=== PATIENT | male | born 1970 ===

== ENCOUNTER 2018-11-08 10:16 | Inpatient (IN) | payer OTHER ==
[2018-11-08 10:17] VITALS: BMI 25.7
[2018-11-08] MEDS ORDERED: Sodium Chloride 0.9% 1,000 ML IV ONE ×2 (10:52→14:56)
[2018-11-08] MEDS ORDERED: Sodium Chloride 0.9% 1,000 ML ONE ×2 (11:02→15:03)
[2018-11-08 11:09] LABS: BASO % 0.2 % (0.0-2.0); HEMOGLOBIN 14.1 g/dL (12.0-18.0); LYMPH # 0.9 K/uL (1.0-4.3); LYMPH % 10.9 % (20.0-40.0); MEAN CELL VOLUME 80.9 fL (80.0-94.0); MEAN CORPUSCULAR HEMOGLOBIN 26.7 pg (27.0-31.0); MONO # 0.4 K/uL (0.0-0.8); MONO % 5.2 % (0.0-10.0); NEUT # 7.1 K/uL (1.8-7.0); NEUT % 83.7 % (50.0-75.0); RBC 5.27 Mil/uL (4.40-5.90); RED CELL DISTRIBUTION WIDTH 13.6 % (11.5-14.5); WHITE BLOOD COUNT 8.5 K/uL (4.8-10.8)
[2018-11-08 11:28] LABS: ALB/GLOB RATIO 1.5 (1.0-2.1); ALBUMIN 4.8 g/dL (3.5-5.0); ALT/SGPT 475 U/L (21-72); AMYLASE 65 U/L (30-110); AST/SGOT 663 U/L (17-59); BLOOD UREA NITROGEN 16 mg/dL (9-20); CALCIUM 9.5 mg/dl (8.6-10.4); GFR NON-AFRICAN AMERICAN > 60; LIPASE 71 U/L (23-300)
[2018-11-08 11:40] LABS: URINE AMORPHOUS SEDIMENT FEW /ul (<OCC); URINE BACTERIA OCC (<OCC); URINE BILIRUBIN NEGATIVE (NEGATIVE); URINE BLOOD NEGATIVE (NEGATIVE); URINE CLARITY Hazy (Clear); URINE GLUCOSE (UA) NORMAL (Normal); URINE LEUKOCYTE ESTERASE NEG Leu/uL (Negative); URINE PROTEIN 1+ mg/dL (NEGATIVE)
[2018-11-08 11:43] LABS: URINE COLOR YELLOW (YELLOW)
--- NOTE | 2018-11-08 11:56 | C.PDOC ---
Time Seen by Provider: 11/08/18 10:44 Chief Complaint (Nursing): Abdominal Pain Past Medical History Vital Signs: Last Vital Signs Temp 98.7 F 11/08/18 10:23 Pulse 75 11/08/18 10:23 Resp 18 11/08/18 10:23 BP 139/75 11/08/18 10:23 Pulse Ox 96 11/08/18 10:23 - Medical History PMH: Kidney Stones, Chronic Kidney Disease Family History: States: Unknown Family Hx - Social History Hx Alcohol Use: No Hx Substance Use: No ED Course And Treatment - Laboratory Results Result Diagrams: 11/08/18 11:04 11/08/18 11:04 ECG: Interpreted By Me, Viewed By Me ECG Rhythm: Sinus Rhythm ECG Interpretation: No Acute Changes Rate From EC O2 Sat by Pulse Oximetry: 96 Disposition - Disposition Forms: [employer] (Thai)
--- NOTE | 2018-11-08 12:35 | C.PDOC ---
History Of Present Illness 48 year old male, with no significant past medical history, presents to ED for evaluation of intermittent epigastric abdominal pain for the past 2 weeks but persistent over the last 2 days. Patient states he is unable to eat due to the pain. He reports associated nausea, and vomiting since last night. He reports one episode of non-bloody loose stool today. Denies urinary symptoms, back pain, or fever. Time Seen by Provider: 11/08/18 10:44 Chief Complaint (Nursing): Abdominal Pain History Per: Patient History/Exam Limitations: no limitations Onset/Duration Of Symptoms: Days Current Symptoms Are (Timing): Worse Location Of Pain/Discomfort: Epigastric Radiation Of Pain To:: None Quality Of Discomfort: "Pain" Associated Symptoms: Nausea, Vomiting Exacerbating Factors: None Alleviating Factors: None Recent travel outside of the [place]: No Additional History Per: Patient Past Medical History Reviewed: Historical Data, Nursing Documentation, Vital Signs Vital Signs: Last Vital Signs Temp 98.7 F 11/08/18 10:23 Pulse 75 11/08/18 10:23 Resp 18 11/08/18 10:23 BP 139/75 11/08/18 10:23 Pulse Ox 96 11/08/18 10:23 - Medical History PMH: Kidney Stones, Chronic Kidney Disease Family History: States: Unknown Family Hx - Social History Hx Alcohol Use: No Hx Substance Use: No Review Of Systems Except As Marked, All Systems Reviewed And Found Negative. Constitutional: Negative for: Fever, Chills Gastrointestinal: Positive for: Nausea, Vomiting, Abdominal Pain Genitourinary: Negative for: Dysuria, Frequency, Hematuria Musculoskeletal: Negative for: Back Pain Physical Exam - Physical Exam Appears: Non-toxic, Other (uncomfortable) Skin: Normal Color, Warm, Dry Head: Atraumatic, Normacephalic Eye(s): bilateral: Normal Inspection Oral Mucosa: Moist Neck: Normal ROM, Supple Cardiovascular: Rhythm Regular, No Murmur Respiratory: Normal Breath Sounds, No Rales, No Rhonchi, No Wheezing Gastrointestinal/Abdominal: Soft, Tenderness (epigastric), No Guarding, No Rebound, No Other ((-)McBurney's (-)Camargo's) Back: No CVA Tenderness Extremity: Normal ROM Neurological/Psych: Oriented x3, Normal Speech ED Course And Treatment - Laboratory Results Result Diagrams: 11/08/18 11:04 11/08/18 11:04 Lab Interpretation: Abnormal ECG: Interpreted By Me, Viewed By Me ECG Rhythm: Sinus Rhythm ECG Interpretation: No Acute Changes Rate From EC (bpm) O2 Sat by Pulse Oximetry: 96 (RA) Pulse Ox Interpretation: Normal - CT Scan/US Abdomen Other Rad Studies (CT/US): Read By Radiologist, Radiology Report Reviewed CT/US Interpretation: Accession No. : [id number]. Patient Name / ID : ASHLEY LOPEZ YON / [id number]. Exam Date : 11/08/2018 12:36:30 ( Approved ). Study Comment : Sex / Age : M / 48Y. Creator : Jeannette Pimentel MD. Dictator : Jeannette Pimentel MD. Lipcoat Sprayer : Sheet Manufacturing Supervisor : Jeannette Pimentel MD. Approver2 : Report Date : 11/08/2018 13:17:18. My Comment : . Date of service: 11/08/2018. HISTORY: upper abd pain, abn LFT. COMPARISON: None. TECHNIQUE: Sonographic evaluation of the abdomen. FINDINGS: LIVER: Measures 14.3 cm. There is diffuse increased echogenicity of the liver parenchyma. No mass. No intrahepatic bile duct dilatation. GALLBLADDER: The gallbladder is distended, there are multiple gallstones and mild gallbladder wall thickening with small pericholecystic fluid. No positive sonographic Camargo's sign. COMMON BILE DUCT: Measures 5.0 mm. No stones. No dilatation. PANCREAS: Unremarkable as visualized. No mass. No ductal dilatation. RIGHT KIDNEY: Measures 11.1cm. Normal echogenicity. No calculus, mass, or hydronephrosis. LEFT KIDNEY: Measures 12.3cm. Normal echogenicity. There is a 11 mm stone in the interpolar region and 9 mm stone in the upper pole. SPLEEN: Normal in size and contour. No mass. AORTA: No aneurysmal dilatation. IVC: Unremarkable. OTHER FINDINGS: None. IMPRESSION: Distended gallbladder, cholelithiasis and mild gallbladder wall thickening/pericholecystic fluid. Findings could represent acute calculus cholecystitis in the appropriate clinical setting. Clinical follow-up is advised. Nonobstructing stones in the left kidney. Hepatic steatosis. Medical Decision Making Medical Decision Making: Impression:48 year old male with epigastric abdominal pain associated with nausea, and vomiting. Plan: * Blood work * Urinalysis * ECG * Abdomen ultrasound * Pepcid * Toradol * Zofran * IV fluids Labs reviewed and abnormal elevated LFT and bilirubin. US shows Distended gallbladder, cholelithiasis and mild gallbladder wall thickening/pericholecystic fluid. Findings could represent acute calculus cholecystitis in the appropriate clinical setting. Nonobstructing stones in the left kidney. Hepatic steatosis. [address] surgery for consult. 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 Recommend MRCP and plan is for surgery SaturdayNovember 10. Contact hospitalist DR Morales for admission and she accepted Disposition - Disposition Disposition: HOSPITALIZED Disposition Time: 14:50 Condition: STABLE - POA Present On Arrival: None - Clinical Impression Clinical Impression: Acute calculous cholecystitis, Hepatitis - PA / ENGINEERING AND SCIENTIFIC PROGRAMMER / Resident Statement MD/DO has reviewed & agrees with the documentation as recorded. - Scribe Statement The provider has reviewed the documentation as recorded by the Berenice Aparicio All medical record entries made by the Mohsenibsade were at my direction and personally dictated by me. I have reviewed the chart and agree that the record accurately reflects my personal performance of the history, physical exam, medical decision making, and the department course for this patient. I have also personally directed, reviewed, and agree with the discharge instructions and disposition. Decision To Admit - Pt Status Changed To: Hospital Disposition Of: Inpatient - Admit Certification Admit to Inpatient:: After my assessment, the patient will require hospitalization for at least two midnights. This is because of the severity of symptoms shown, intensity of services needed, and/or the medical risk in this patient being treated as an outpatient. - InPatient: Physician Admission Certification:: Patient with acute pain and findings show cholelithiasis with correlating acute cholecystitis and surgery was consulted. Plan is for MRCP with GI and surgery - . Bed Request Type: Regular Admitting Physician: Elliot Morales Patient Diagnosis: Acute calculous cholecystitis, Hepatitis
--- NOTE | 2018-11-08 13:21 | US ---
Date of service: 11/08/2018 HISTORY: upper abd pain, abn LFT COMPARISON: None. TECHNIQUE: Sonographic evaluation of the abdomen. FINDINGS: LIVER: Measures 14.3 cm. There is diffuse increased echogenicity of the liver parenchyma. No mass. No intrahepatic bile duct dilatation. GALLBLADDER: The gallbladder is distended, there are multiple gallstones and mild gallbladder wall thickening with small pericholecystic fluid. No positive sonographic Camargo's sign. COMMON BILE DUCT: Measures 5.0 mm. No stones. No dilatation. PANCREAS: Unremarkable as visualized. No mass. No ductal dilatation. RIGHT KIDNEY: Measures 11.1cm. Normal echogenicity. No calculus, mass, or hydronephrosis. LEFT KIDNEY: Measures 12.3cm. Normal echogenicity. There is a 11 mm stone in the interpolar region and 9 mm stone in the upper pole. SPLEEN: Normal in size and contour. No mass. AORTA: No aneurysmal dilatation. IVC: Unremarkable. OTHER FINDINGS: None. IMPRESSION: Distended gallbladder, cholelithiasis and mild gallbladder wall thickening/pericholecystic fluid. Findings could represent acute calculus cholecystitis in the appropriate clinical setting. Clinical follow-up is advised. Nonobstructing stones in the left kidney. Hepatic steatosis.
[2018-11-08] MEDS ORDERED: Morphine 4 MG/ML VIAL ONE (15:03)
--- NOTE | 2018-11-08 15:17 | CP.PCM.CON ---
<Prabhjot Yu - Last Filed: 11/08/18 15:14> History of Present Illness - History of Present Illness History of Present Illness: General Sssry Consult Note for Dr. Ro This 48M with no PMH presents due to 2 weeks of epigastric abdominal pain following meals that were self limiting however yesterday after eating the pain started and did not go away. He reports nausea and vomiting which appeared as food contents. He reports diarrhea for the last 2 weeks as well which was non bloody and non bilious and associated with the pain. Before these two weeks this has never happened before. Nothing makes it better and nothing makes it worse. Denies fevers chils chest pain. PMH: Denies PSH: Denies ALL: Denies Social: Denies vices Review of Systems - Constitutional Constitutional: absent: Chills, Fever - EENT Eyes: absent: Blind Spots, Blurred Vision Ears: absent: Tinnitus, Dizziness - Cardiovascular Cardiovascular: absent: Chest Pain, Dyspnea - Respiratory Respiratory: absent: Dyspnea, Dyspnea on Exertion - Gastrointestinal Gastrointestinal: Abdominal Pain, Bloating, Diarrhea, Nausea, Vomiting - Genitourinary Genitourinary: absent: Dysuria, Hematuria - Integumentary Integumentary: absent: Dry Skin, Lesions Past Patient History - Infectious Disease Hx of Infectious Diseases: None - Past Social History Smoking Status: Unknown If Ever Smoked - CARDIAC Hx Cardiac Disorders: No - PULMONARY Hx Respiratory Disorders: No - NEUROLOGICAL Hx Neurological Disorder: No - HEENT Hx HEENT Problems: No - RENAL Hx Chronic Kidney Disease: Yes Hx Kidney Stones: Yes - ENDOCRINE/METABOLIC Hx Endocrine Disorders: No - HEMATOLOGICAL/ONCOLOGICAL Hx Blood Disorders: No - INTEGUMENTARY Hx Dermatological Problems: No - MUSCULOSKELETAL/RHEUMATOLOGICAL Hx Musculoskeletal Disorders: No - GASTROINTESTINAL Hx Gastrointestinal Disorders: No - GENITOURINARY/GYNECOLOGICAL Hx Genitourinary Disorders: Yes Other/Comment: Kidney stones - PSYCHIATRIC Hx Substance Use: No - SURGICAL HISTORY Hx Surgeries: No - ANESTHESIA Hx Anesthesia: No Meds Allergies/Adverse Reactions: Allergies Allergy/AdvReac Type Severity Reaction Status Date / Time No Known Allergies Allergy Verified 03/25/15 05:11 - Medications Medications: Current Medications Sodium Chloride (Sodium Chloride 0.9%) 1,000 mls @ 100 mls/hr IV .Q10H ONE Stop: 11/09/18 00:55 Last Admin: 11/08/18 15:04 Dose: 100 mls/hr Physical Exam - Constitutional Appears: Non-toxic, No Acute Distress - Head Exam Head Exam: ATRAUMATIC, NORMOCEPHALIC - Eye Exam Eye Exam: EOMI - ENT Exam ENT Exam: Mucous Membranes Moist - Respiratory Exam Respiratory Exam: NORMAL BREATHING PATTERN - Cardiovascular Exam Cardiovascular Exam: +S1, +S2 - GI/Abdominal Exam GI & Abdominal Exam: Soft (Right side soft left side guarding ), Tenderness. absent: Distended - Neurological Exam Neurological exam: Alert, Oriented x3 - Psychiatric Exam Psychiatric exam: Normal Affect, Normal Mood - Skin Skin Exam: Dry, Intact Results - Vital Signs Recent Vital Signs: Last Vital Signs Temp 98.1 F 11/08/18 14:25 Pulse 82 11/08/18 14:25 Resp 20 11/08/18 14:25 BP 114/58 L 11/08/18 14:25 Pulse Ox 96 11/08/18 15:09 - Labs Result Diagrams: 11/08/18 11:04 11/08/18 11:04 Labs: Laboratory Results - last 24 hr 11/08/18 11/08/18 11/08/18 11:04 11:04 11:04 WBC 8.5 RBC 5.27 Hgb 14.1 Hct 42.7 MCV 80.9 MCH 26.7 L MCHC 33.0 RDW 13.6 Plt Count 222 MPV 9.0 Neut % (Auto) 83.7 H Lymph % (Auto) 10.9 L [place] % (Auto) 5.2 Eos % (Auto) 0.0 Baso % (Auto) 0.2 Neut # (Auto) 7.1 H Lymph # (Auto) 0.9 L [place] # (Auto) 0.4 Eos # (Auto) 0.0 Baso # (Auto) 0.0 Sodium 141 Potassium 3.9 Chloride 100 Carbon Dioxide 32 H Anion Gap 13 BUN 16 Creatinine 1.0 Est GFR ( Amer) > 60 Est GFR (Non-Af Amer) > 60 Random Glucose 166 H Calcium 9.5 Total Bilirubin 2.1 H AST 663 H ALT 475 H Alkaline Phosphatase 131 H Total Protein 8.1 Albumin 4.8 Globulin 3.3 Albumin/Globulin Ratio 1.5 Amylase 65 Lipase 71 Urine Color Yellow Urine Clarity Hazy Urine pH 7.0 Ur Specific [place] 1.024 Urine Protein 1+ H Urine Glucose (UA) Normal Urine Ketones Negative Urine Blood Negative Urine Nitrate Negative Urine Bilirubin Negative Urine Urobilinogen 4.0 Ur Leukocyte Esterase Neg Urine WBC (Auto) 8 H Urine RBC (Auto) 3 Amorphous Sediment Few H Urine Bacteria Occ H - Imaging and Cardiology US - abdomen Status: Report reviewed by me Assessment & Plan - Assessment and Plan (Free Text) Assessment: 48M with acute cholecysitis AST/ALT 663/475 Tbili 2.1 US CBD 5mm, GB wall edema, stones Plan: MRCP ABX NPO IVF F/U GI Consult Further recs per Dr. Jayjay Yu PGY3 <Raymon Ro - Last Filed: 11/09/18 19:43> Meds - Medications Medications: Current Medications Famotidine (Pepcid) 20 mg PO DAILY YOANA Last Admin: 11/09/18 09:38 Dose: 20 mg Hydromorphone HCl (Dilaudid) 0.5 mg IVP Q4H PRN PRN Reason: Pain, moderate (4-7) Ciprofloxacin (Cipro 400mg/200ml Dsw) 400 mg in 200 mls @ 133 mls/hr IVPB Q12H YOANA; Protocol Last Admin: 11/09/18 15:17 Dose: 133 mls/hr Lactated Ringer's (Lactated Ringer's) 1,000 mls @ 100 mls/hr IV .Q10H YOANA Last Admin: 11/09/18 12:18 Dose: 100 mls/hr Metronidazole (Flagyl) 500 mg in 100 mls @ 100 mls/hr IVPB Q8H YOANA; Protocol Last Admin: 11/09/18 17:13 Dose: 100 mls/hr Results - Vital Signs Recent Vital Signs: Last Vital Signs Temp 98.4 F 11/09/18 15:00 Pulse 68 11/09/18 15:00 Resp 20 11/09/18 15:00 BP 121/71 11/09/18 15:00 Pulse Ox 98 11/09/18 15:00 - Labs Result Diagrams: 11/09/18 08:07 11/09/18 08:07 Labs: Laboratory Results - last 24 hr 11/09/18 11/09/18 08:07 08:07 WBC 3.9 L D RBC 4.50 Hgb 12.3 Hct 36.5 MCV 81.0 MCH 27.3 MCHC 33.7 RDW 13.8 Plt Count 169 MPV 9.1 Neut % (Auto) 61.2 Lymph % (Auto) 26.1 [place] % (Auto) 8.8 Eos % (Auto) 3.2 Baso % (Auto) 0.7 Neut # (Auto) 2.4 Lymph # (Auto) 1.0 [place] # (Auto) 0.3 Eos # (Auto) 0.1 Baso # (Auto) 0.0 Sodium 140 Potassium 3.6 Chloride 103 Carbon Dioxide 30 Anion Gap 12 BUN 16 Creatinine 0.9 Est GFR ( Amer) > 60 Est GFR (Non-Af Amer) > 60 Random Glucose 93 Calcium 8.6 Phosphorus 3.4 Magnesium 2.0 Total Bilirubin 2.1 H AST 302 H D ALT 463 H Alkaline Phosphatase 94 Total Protein 6.6 Albumin 3.7 Globulin 2.9 Albumin/Globulin Ratio 1.3 Attending/Attestation - Attestation I have personally seen and examined this patient.: Yes I have fully participated in the care of the patient.: Yes I have reviewed all pertinent clinical information: Yes Notes (Text): Pt was seen and examined at bedside Agree with above note and assessment Pt with upper abdominal pain Abdomen: Soft, ND, tender in RUQ Labs and radiology reviewed Ass: Acute cholecystitis with Abnormal LFTs Plan: MRCP IV antibiotics GI consult Plan d.w pt in detail Risk and benefit explained in detail.
[2018-11-08] MEDS ORDERED: HYDROmorphone 0.5 mg/0.5 ml ISec IVP PRN (15:24)
[2018-11-08] MEDS: Ciprofloxacin 400mg/200ml D5W 400 MG/200 ML BAG IVPB SCH (15:43)
[2018-11-08] MEDS: Lactated Ringer's 1,000 ML IV SCH (15:44)
[2018-11-08] MEDS ORDERED: Sodium Chloride 0.9% 1,000 ML IV SCH (16:30)
--- NOTE | 2018-11-08 16:34 | CP.PCM.HP ---
<Oscar Flanagan - Last Filed: 11/08/18 23:47> History of Present Illness - History of Present Illness History of Present Illness: 48 year old male with no significant past medical history presents to the ED today complaining of abdominal pain. Patient reports the abdominal pain is located epigastric region. It is non radiating and sharp pain in quality. The pain first started about 3 weeks ago. At first it was on and off, but it became worse last night with multiple episodes of non bloody and no bilious vomiting. The pain is worse with motion and food intake. Other associated symptoms include fatigue and occasional diarrhea. He denies having fever, chills, headache, shortness of breath, chest pain, or urinary symptoms. Contact: girlfriend Aleksandra [phone] PMD: none PMHx: none PSHx: none Allergy: NKDA Social Hx: social alcohol consumption, denies tobacco and other drug use Family Hx: non contributory Medication: none Present on Admission - Present on Admission Any Indicators Present on Admission: No Review of Systems - Constitutional Constitutional: As Per HPI. absent: Anorexia, Chills, Fatigue, Fever, Frequent Falls - EENT Eyes: As Per HPI. absent: Blind Spots, Decreased Night Vision, Irritation Ears: As Per HPI. absent: Decreased Hearing, Abnormal Hearing, Disequilibrium Nose/Mouth/Throat: As Per HPI. absent: Epistaxis, Nasal Trauma, Nose Pain - Cardiovascular Cardiovascular: As Per HPI. absent: Acrocyanosis, Chest Pain, Chest Pain with Activity, Dyspnea - Respiratory Respiratory: As Per HPI. absent: Cough, Dyspnea, Hemoptysis - Gastrointestinal Gastrointestinal: As Per HPI, Abdominal Pain, Diarrhea, Nausea, Vomiting. absent: Dyspepsia - Genitourinary Genitourinary: As Per HPI. absent: Hematuria, Pyuria, Nocturia - Musculoskeletal Musculoskeletal: As Per HPI. absent: Abnormal Gait, Joint Swelling, Limited Range of Motion - Integumentary Integumentary: As Per HPI. absent: Acne, Change in Nails - Neurological Neurological: As Per HPI. absent: Abnormal Gait, Abnormal Speech, Disequilibrium, Dizziness - Psychiatric Psychiatric: As Per HPI. absent: Anhedonia, Anxiety, Auditory Hallucinations - Endocrine Endocrine: As Per HPI - Hematologic/Lymphatic Hematologic: As Per HPI Past Patient History - Infectious Disease Hx of Infectious Diseases: None - Past Social History Smoking Status: Unknown If Ever Smoked - CARDIAC Hx Cardiac Disorders: No - PULMONARY Hx Respiratory Disorders: No - NEUROLOGICAL Hx Neurological Disorder: No - HEENT Hx HEENT Problems: No - RENAL Hx Chronic Kidney Disease: Yes Hx Kidney Stones: Yes - ENDOCRINE/METABOLIC Hx Endocrine Disorders: No - HEMATOLOGICAL/ONCOLOGICAL Hx Blood Disorders: No - INTEGUMENTARY Hx Dermatological Problems: No - MUSCULOSKELETAL/RHEUMATOLOGICAL Hx Musculoskeletal Disorders: No - GASTROINTESTINAL Hx Gastrointestinal Disorders: No - GENITOURINARY/GYNECOLOGICAL Hx Genitourinary Disorders: Yes Other/Comment: Kidney stones - PSYCHIATRIC Hx Substance Use: No - SURGICAL HISTORY Hx Surgeries: No - ANESTHESIA Hx Anesthesia: No Meds Allergies/Adverse Reactions: Allergies Allergy/AdvReac Type Severity Reaction Status Date / Time No Known Allergies Allergy Verified 03/25/15 05:11 Physical Exam - Constitutional Appears: Well, No Acute Distress - Head Exam Head Exam: ATRAUMATIC, NORMAL INSPECTION, NORMOCEPHALIC - Eye Exam Eye Exam: EOMI, Normal appearance, PERRL Pupil Exam: NORMAL ACCOMODATION, PERRL - ENT Exam ENT Exam: Mucous Membranes Moist, Normal Exam - Neck Exam Neck exam: Positive for: Normal Inspection - Respiratory Exam Respiratory Exam: Clear to Auscultation Bilateral, NORMAL BREATHING PATTERN - Cardiovascular Exam Cardiovascular Exam: REGULAR RHYTHM - GI/Abdominal Exam GI & Abdominal Exam: Normal Bowel Sounds, Soft, Tenderness. absent: Distended (mild epigastric tenderness) Additional comments: Negative Camargo's sign, Negative McBurney - Extremities Exam Extremities exam: Positive for: normal inspection - Neurological Exam Neurological exam: Alert, CN II-XII Intact, Normal Gait, Oriented x3, Reflexes Normal - Psychiatric Exam Psychiatric exam: Normal Affect, Normal Mood - Skin Skin Exam: Dry, Normal Color, Warm Results - Vital Signs Recent Vital Signs: Last Vital Signs Temp 98.0 F 11/08/18 15:40 Pulse 60 11/08/18 15:40 Resp 15 11/08/18 15:40 BP 111/64 11/08/18 15:40 Pulse Ox 99 11/08/18 15:40 - Labs Result Diagrams: 11/08/18 11:04 11/08/18 11:04 Labs: Laboratory Results - last 24 hr 11/08/18 11/08/18 11/08/18 11:04 11:04 11:04 WBC 8.5 RBC 5.27 Hgb 14.1 Hct 42.7 MCV 80.9 MCH 26.7 L MCHC 33.0 RDW 13.6 Plt Count 222 MPV 9.0 Neut % (Auto) 83.7 H Lymph % (Auto) 10.9 L [place] % (Auto) 5.2 Eos % (Auto) 0.0 Baso % (Auto) 0.2 Neut # (Auto) 7.1 H Lymph # (Auto) 0.9 L [place] # (Auto) 0.4 Eos # (Auto) 0.0 Baso # (Auto) 0.0 Sodium 141 Potassium 3.9 Chloride 100 Carbon Dioxide 32 H Anion Gap 13 BUN 16 Creatinine 1.0 Est GFR ( Amer) > 60 Est GFR (Non-Af Amer) > 60 Random Glucose 166 H Calcium 9.5 Total Bilirubin 2.1 H AST 663 H ALT 475 H Alkaline Phosphatase 131 H Total Protein 8.1 Albumin 4.8 Globulin 3.3 Albumin/Globulin Ratio 1.5 Amylase 65 Lipase 71 Urine Color Yellow Urine Clarity Hazy Urine pH 7.0 Ur Specific [place] 1.024 Urine Protein 1+ H Urine Glucose (UA) Normal Urine Ketones Negative Urine Blood Negative Urine Nitrate Negative Urine Bilirubin Negative Urine Urobilinogen 4.0 Ur Leukocyte Esterase Neg Urine WBC (Auto) 8 H Urine RBC (Auto) 3 Amorphous Sediment Few H Urine Bacteria Occ H Assessment & Plan - Assessment and Plan (Free Text) Assessment: Acute Cholecystitis -Follow up MRCP results -Follow surgery and GI recommendations -U/S suggests acute cholecystitis -NPO -LR 100ml/hr -Cipro 400mg IV Q12 -Flagyl 500mg IV Q8 -Dilaudid 0.5mg IV Q4 prn Transmitis -Likely secondary to cholecystitis -AST 663, ALT 475, ALK PHOS 131 -Hep panel -Monitor Prophylactic measures -SCD -pepcid Case discussed with attending Dr. Morales <Elliot Morales - Last Filed: 11/12/18 09:31> Results - Vital Signs Recent Vital Signs: Last Vital Signs Temp 99.1 F 11/11/18 15:40 Pulse 77 11/11/18 15:40 Resp 20 11/11/18 15:40 BP 133/88 11/11/18 15:40 Pulse Ox 95 11/11/18 15:40 - Labs Result Diagrams: 11/11/18 06:18 11/11/18 06:18 Attending/Attestation - Attestation I have personally seen and examined this patient.: Yes I have fully participated in the care of the patient.: Yes I have reviewed all pertinent clinical information: Yes Notes (Text): Seen and examined by me Acute cholecystitis Follow surgery recommendation continue antibiotics
[2018-11-08] MEDS: metroNIDAZOLE IV 500 mg/100 ml 500 MG/100 ML BAG IVPB SCH (17:20)
[2018-11-09] MEDS: metroNIDAZOLE IV 500 mg/100 ml 500 MG/100 ML BAG IVPB SCH ×4 (00:55→23:46)
[2018-11-09] MEDS: Lactated Ringer's 1,000 ML IV SCH ×3 (03:51→21:47)
[2018-11-09] MEDS: Ciprofloxacin 400mg/200ml D5W 400 MG/200 ML BAG IVPB SCH ×2 (03:51→15:17)
--- NOTE | 2018-11-09 08:14 | CP.PCM.PN ---
Subjective - Date & Time of Evaluation Date of Evaluation: 11/09/18 Time of Evaluation: 08:11 - Subjective Subjective: Surgery: Dr. Ro Pt seen and examined. No acute overnight events. States he feels better this AM, his abdominal pain has improved and he denies nausea/vomiting. Denies fevers/chills. Objective - Vital Signs/Intake and Output Vital Signs (last 24 hours): Temp Pulse Resp BP Pulse Ox 98.2 F 62 20 106/65 96 11/09/18 00:00 11/09/18 00:00 11/09/18 00:00 11/09/18 00:00 11/09/18 00:00 Intake and Output: 11/09/18 11/09/18 06:59 18:59 Intake Total 700 Balance 700 - Medications Medications: Current Medications Famotidine (Pepcid) 20 mg PO DAILY YOANA Hydromorphone HCl (Dilaudid) 0.5 mg IVP Q4H PRN PRN Reason: Pain, moderate (4-7) Ciprofloxacin (Cipro 400mg/200ml Dsw) 400 mg in 200 mls @ 133 mls/hr IVPB Q12H YOANA; Protocol Last Admin: 11/09/18 03:51 Dose: 133 mls/hr Lactated Ringer's (Lactated Ringer's) 1,000 mls @ 100 mls/hr IV .Q10H YOANA Last Admin: 11/09/18 03:51 Dose: Not Given Metronidazole (Flagyl) 500 mg in 100 mls @ 100 mls/hr IVPB Q8H YOANA; Protocol Last Admin: 11/09/18 00:55 Dose: 100 mls/hr - Labs Labs: 11/08/18 11:04 11/08/18 11:04 - Constitutional Appears: Well, No Acute Distress - Head Exam Head Exam: ATRAUMATIC, NORMOCEPHALIC - ENT Exam ENT Exam: Mucous Membranes Moist - Respiratory Exam Respiratory Exam: NORMAL BREATHING PATTERN - Cardiovascular Exam Cardiovascular Exam: RRR - GI/Abdominal Exam GI & Abdominal Exam: Soft. absent: Distended, Guarding, Tenderness, Rebound - Extremities Exam Extremities Exam: Full ROM. absent: Tenderness - Neurological Exam Neurological Exam: Alert, Awake, Oriented x3 - Skin Skin Exam: Dry, Warm Assessment and Plan - Assessment and Plan (Free Text) Assessment: 48M with cholecystitis Plan: - MRCP negative for CBD stone - start CLD - will discuss OR tomorrow AM with Dr. Jayjay Clark
[2018-11-09 08:32] LABS: BASO % 0.7 % (0.0-2.0); EOS # 0.1 K/uL (0.0-0.7); EOS % 3.2 % (0.0-4.0); HEMOGLOBIN 12.3 g/dL (12.0-18.0); LYMPH % 26.1 % (20.0-40.0); MEAN CORPUSCULAR HEMOGLOBIN 27.3 pg (27.0-31.0); MEAN CORPUSCULAR HGB CONC 33.7 g/dL (33.0-37.0); MEAN PLATELET VOLUME 9.1 fL (7.2-11.7); MONO # 0.3 K/uL (0.0-0.8); MONO % 8.8 % (0.0-10.0); NEUT # 2.4 K/uL (1.8-7.0); NEUT % 61.2 % (50.0-75.0); NRBC % 0.1 % (0.0-2.0); RBC 4.5 Mil/uL (4.40-5.90); RED CELL DISTRIBUTION WIDTH 13.8 % (11.5-14.5)
[2018-11-09 08:35] LABS: WHITE BLOOD COUNT 3.9 K/uL (4.8-10.8)
[2018-11-09 08:46] LABS: ALB/GLOB RATIO 1.3 (1.0-2.1); ALBUMIN 3.7 g/dL (3.5-5.0); ALT/SGPT 463 U/L (21-72); AST/SGOT 302 U/L (17-59); BLOOD UREA NITROGEN 16 mg/dL (9-20); CALCIUM 8.6 mg/dl (8.6-10.4); GFR NON-AFRICAN AMERICAN > 60
--- NOTE | 2018-11-09 19:33 | CP.PCM.PN ---
<Oscar Flanagan - Last Filed: 11/09/18 21:30> Subjective - Date & Time of Evaluation Date of Evaluation: 11/09/18 Time of Evaluation: 07:25 - Subjective Subjective: Resident Medicine Progress Note Patient see and examined at bedside. No acute events reported overnight. Patient reports his abdominal pain improved significantly. Patient denies fever, chills, dizziness, shortness of breath, chest pain, nausea, vomiting, or urinary symptoms. Objective - Vital Signs/Intake and Output Vital Signs (last 24 hours): Temp Pulse Resp BP Pulse Ox 98.4 F 68 20 121/71 98 11/09/18 15:00 11/09/18 15:00 11/09/18 15:00 11/09/18 15:00 11/09/18 15:00 Intake and Output: 11/09/18 11/10/18 18:59 06:59 Intake Total 800 Balance 800 - Medications Medications: Current Medications Famotidine (Pepcid) 20 mg PO DAILY [facility] Last Admin: 11/09/18 09:38 Dose: 20 mg Hydromorphone HCl (Dilaudid) 0.5 mg IVP Q4H PRN PRN Reason: Pain, moderate (4-7) Ciprofloxacin (Cipro 400mg/200ml Dsw) 400 mg in 200 mls @ 133 mls/hr IVPB Q12H [facility]; Protocol Last Admin: 11/09/18 15:17 Dose: 133 mls/hr Lactated Ringer's (Lactated Ringer's) 1,000 mls @ 100 mls/hr IV .Q10H [facility] Last Admin: 11/09/18 12:18 Dose: 100 mls/hr Metronidazole (Flagyl) 500 mg in 100 mls @ 100 mls/hr IVPB Q8H [facility]; Protocol Last Admin: 11/09/18 17:13 Dose: 100 mls/hr - Labs Labs: 11/09/18 08:07 11/09/18 08:07 - Constitutional Appears: Well, Non-toxic - Head Exam Head Exam: ATRAUMATIC, NORMAL INSPECTION, NORMOCEPHALIC - Eye Exam Eye Exam: EOMI, Normal appearance, PERRL - ENT Exam ENT Exam: Mucous Membranes Moist, Normal Exam - Neck Exam Neck Exam: Normal Inspection - Respiratory Exam Respiratory Exam: Clear to Ausculation Bilateral, NORMAL BREATHING PATTERN. absent: Wheezes, Respiratory Distress - Cardiovascular Exam Cardiovascular Exam: REGULAR RHYTHM, +S1, +S2 - GI/Abdominal Exam GI & Abdominal Exam: Soft, Normal Bowel Sounds. absent: Tenderness - Extremities Exam Extremities Exam: Full ROM, Normal Capillary Refill, Normal Inspection. absent: Joint Swelling, Pedal Edema - Neurological Exam Neurological Exam: Alert, Awake, Oriented x3 - Psychiatric Exam Psychiatric exam: Normal Affect, Normal Mood - Skin Skin Exam: Dry, Intact, Normal Color, Warm Assessment and Plan - Assessment and Plan (Free Text) Assessment: Acute Cholecystitis -Follow up MRCP results -Follow surgery and GI recommendations (Surgery requests GI consultation) -U/S suggests acute cholecystitis -NPO -LR 100ml/hr -Cipro 400mg IV Q12 -Flagyl 500mg IV Q8 -Dilaudid 0.5mg IV Q4 prn -Planned for OR 11/10 Transmitis, improving -Likely secondary to cholecystitis -AST 663, ALT 475, ALK PHOS 131 -Hep panel -Monitor Prophylactic measures -SCD -pepcid Case discussed with attending Dr. Morales <Elliot Morales - Last Filed: 11/12/18 08:26> Objective - Vital Signs/Intake and Output Vital Signs (last 24 hours): Temp Pulse Resp BP Pulse Ox 98.9 F 61 20 111/75 96 11/10/18 08:17 11/10/18 08:17 11/10/18 08:17 11/10/18 08:17 11/10/18 08:17 Intake and Output: 11/10/18 11/10/18 06:59 18:59 Intake Total 1200 50 Balance 1200 50 - Medications Medications: Current Medications Famotidine (Pepcid) 20 mg PO DAILY [facility] Last Admin: 11/10/18 09:15 Dose: Not Given Hydromorphone HCl (Dilaudid) 0.5 mg IVP Q4H PRN PRN Reason: Pain, moderate (4-7) Hydromorphone HCl (Dilaudid) 0.5 mg IVP Q10M PRN PRN Reason: Pain, moderate (4-7) Stop: 11/10/18 13:00 Ciprofloxacin (Cipro 400mg/200ml Dsw) 400 mg in 200 mls @ 133 mls/hr IVPB Q12H [facility]; Protocol Last Admin: 11/10/18 03:10 Dose: 133 mls/hr Lactated Ringer's (Lactated Ringer's) 1,000 mls @ 100 mls/hr IV .Q10H [facility] Last Admin: 11/10/18 09:15 Dose: Not Given Metronidazole (Flagyl) 500 mg in 100 mls @ 100 mls/hr IVPB Q8H [facility]; Protocol Last Admin: 11/10/18 08:34 Dose: 100 mls/hr Metoclopramide HCl (Reglan) 10 mg IVP ONCE PRN PRN Reason: Nausea/Vomiting Stop: 11/10/18 13:00 Ondansetron HCl (Zofran Inj) 4 mg IVP ONCE PRN PRN Reason: Nausea/Vomiting Stop: 11/10/18 13:00 - Labs Labs: 11/10/18 06:54 11/10/18 06:54 PT 12.9 SECONDS (9.7-12.2) H 11/10/18 06:54 INR 1.2 11/10/18 06:54 APTT 32 SECONDS (21-34) 11/10/18 06:54 Attending/Attestation - Attestation I have personally seen and examined this patient.: Yes I have fully participated in the care of the patient.: Yes I have reviewed all pertinent clinical information, including history, physical exam and plan: Yes Notes (Text): Seen and examined with the resident Patient has no complain.His pain resolved His LFT is improving.MRCP negative we will follow with surgery team.
[2018-11-10] MEDS: Ciprofloxacin 400mg/200ml D5W 400 MG/200 ML BAG IVPB SCH ×2 (03:10→14:48)
[2018-11-10 07:09] LABS: HEMOGLOBIN 12.5 g/dL (12.0-18.0); MEAN CELL VOLUME 81.2 fL (80.0-94.0); MEAN CORPUSCULAR HEMOGLOBIN 26.9 pg (27.0-31.0); MEAN CORPUSCULAR HGB CONC 33.1 g/dL (33.0-37.0); MEAN PLATELET VOLUME 9.2 fL (7.2-11.7); RBC 4.65 Mil/uL (4.40-5.90); RED CELL DISTRIBUTION WIDTH 13.8 % (11.5-14.5); WHITE BLOOD COUNT 3.3 K/uL (4.8-10.8)
[2018-11-10 07:12] LABS: INR 1.2; PROTHROMBIN TIME 12.9 SECONDS (9.7-12.2)
[2018-11-10 07:46] LABS: ALB/GLOB RATIO 1.3 (1.0-2.1); ALBUMIN 3.4 g/dL (3.5-5.0); ALT/SGPT 309 U/L (21-72); AST/SGOT 118 U/L (17-59); BLOOD UREA NITROGEN 11 mg/dL (9-20); CALCIUM 8.6 mg/dl (8.6-10.4); GFR NON-AFRICAN AMERICAN > 60
[2018-11-10] MEDS ORDERED: ceFAZolin IV 1 gm in Dextrose 1 GM/50 ML BAG IVPB ONE (08:17)
[2018-11-10] MEDS ORDERED: Bupivacaine 0.25% 20 ML INJ IJ ONE (08:17)
[2018-11-10] MEDS ORDERED: Lidocaine/Epinephrine 1% 1:100000 10 ML IJ ONE (08:18)
[2018-11-10 08:34] LABS: HEPATITIS B SURFACE AG Negative (NEGATIVE)
[2018-11-10] MEDS: metroNIDAZOLE IV 500 mg/100 ml 500 MG/100 ML BAG IVPB SCH ×2 (08:34→17:18)
[2018-11-10 08:41] LABS: HEPATITIS A IGM NEGATIVE (NEGATIVE); HEPATITIS B CORE AB NEGATIVE (NEGATIVE)
[2018-11-10 08:52] LABS: HEPATITIS C ANTIBODY NEGATIVE (NEGATIVE)
[2018-11-10] MEDS: Lactated Ringer's 1,000 ML IV SCH ×2 (09:15→18:38)
[2018-11-10] MEDS ORDERED: Midazolam 2 MG/2 ML VIAL ONE (09:35)
[2018-11-10] MEDS ORDERED: Propofol 10 mg/ml Inj (20 ML) ONE (09:36)
[2018-11-10] MEDS ORDERED: Rocuronium 10 mg/ml (5 ml) ONE (11:06)
[2018-11-10] MEDS ORDERED: Phenylephrine 10 mg/ml Inj ONE (11:18)
[2018-11-10] MEDS ORDERED: Bacitracin 500 Units/gm Oint Foilpak UD ONE (11:35)
--- NOTE | 2018-11-10 11:45 | PCM.SURG1 ---
Surgeon's Initial Post Op Note - Surgeon's Notes Surgeon: Dr. Ro Software Test Engineer: Ivy PGY2 Type of Anesthesia: General Endo, Local Pre-Operative Diagnosis: Cholelithiasis Operative Findings: See operative report Post-Operative Diagnosis: same Operation Performed: Robotic Cholecystectomy Specimen/Specimens Removed: Gallbladder Estimated Blood Loss: EBL {In ML}: 20 Blood Products Given: N/A Drains Used: No Drains Post-Op Condition: Good Date of Surgery/Procedure: 11/10/18 Time of Surgery/Procedure: 11:45
[2018-11-10] MEDS: HYDROmorphone 0.5 mg/0.5 ml ISec IVP PRN ×3 (11:56→12:47)
[2018-11-10] MEDS: Oxycodone/Acetaminophen 5/325 mg Tab PO PRN (14:14)
--- NOTE | 2018-11-10 15:06 | CARD ---
APPROVED REPORT Date of service: 11/08/2018 EKG Measurement Heart [id number] <Conclusion> Normal sinus rhythm Nonspecific T wave abnormality Abnormal ECG
--- NOTE | 2018-11-10 15:13 | CP.PCM.PN ---
Subjective - Date & Time of Evaluation Date of Evaluation: 11/10/18 Time of Evaluation: 08:35 - Subjective Subjective: Patient examined at bedside. No acute overnight events. Patient reports pain is greatly improved since yesterday. Pt is aware he is going to surgery today for a lap servando with surgery. Denies fever like symptoms, chest pain, SOB, n ausea, diarrhea. Objective - Vital Signs/Intake and Output Vital Signs (last 24 hours): Temp Pulse Resp BP Pulse Ox 97.6 F 74 13 132/77 100 11/10/18 13:00 11/10/18 13:00 11/10/18 13:00 11/10/18 13:00 11/10/18 13:00 Intake and Output: 11/10/18 11/10/18 06:59 18:59 Intake Total 1200 1050 Balance 1200 1050 - Medications Medications: Current Medications Famotidine (Pepcid) 20 mg PO DAILY [facility] Last Admin: 11/10/18 09:15 Dose: Not Given Hydromorphone HCl (Dilaudid) 0.5 mg IVP Q4H PRN PRN Reason: Pain, moderate (4-7) Ciprofloxacin (Cipro 400mg/200ml Dsw) 400 mg in 200 mls @ 133 mls/hr IVPB Q12H [facility]; Protocol Last Admin: 11/10/18 14:48 Dose: 133 mls/hr Lactated Ringer's (Lactated Ringer's) 1,000 mls @ 100 mls/hr IV .Q10H [facility] Last Admin: 11/10/18 09:15 Dose: Not Given Metronidazole (Flagyl) 500 mg in 100 mls @ 100 mls/hr IVPB Q8H [facility]; Protocol Last Admin: 11/10/18 08:34 Dose: 100 mls/hr Oxycodone/Acetaminophen (Percocet 5/325 Mg Tab) 1 tab PO Q6H PRN PRN Reason: Pain, moderate (4-7) Stop: 11/13/18 11:46 Last Admin: 11/10/18 14:14 Dose: 1 tab Vitamin A (Vitamin A & D Oint Ud Foilpak) 1 ea TOP Q8 [facility] - Labs Labs: 11/10/18 06:54 11/10/18 06:54 PT 12.9 SECONDS (9.7-12.2) H 11/10/18 06:54 INR 1.2 11/10/18 06:54 APTT 32 SECONDS (21-34) 11/10/18 06:54 - Constitutional Appears: Non-toxic, No Acute Distress - Head Exam Head Exam: ATRAUMATIC, NORMAL INSPECTION, NORMOCEPHALIC - Eye Exam Eye Exam: EOMI, Normal appearance - ENT Exam ENT Exam: Mucous Membranes Moist, Normal Exam - Neck Exam Neck Exam: Full ROM, Normal Inspection - Respiratory Exam Respiratory Exam: Clear to Ausculation Bilateral, NORMAL BREATHING PATTERN - Cardiovascular Exam Cardiovascular Exam: REGULAR RHYTHM, +S1, +S2 - GI/Abdominal Exam GI & Abdominal Exam: Soft, Tenderness (LUQ tenderness to palpation). absent: Distended, Guarding - Extremities Exam Extremities Exam: Normal Inspection. absent: Calf Tenderness, Pedal Edema - Neurological Exam Neurological Exam: Alert, Awake, Normal Gait, Oriented x3 - Psychiatric Exam Psychiatric exam: Normal Affect, Normal Mood - Skin Skin Exam: Dry, Intact, Normal Color, Warm Assessment and Plan - Assessment and Plan (Free Text) Assessment: 48 year old male with no PMHx admitted for treatment of cholelithiasis Plan: Cholelithiasis -CLD, ADAT -IV Abx, Cipro., flagyl, -pain control prn, dilaudid, percocet, toradol -sx consult, Dr. Ro Transaminitis, improving -likely 2/2 to biliary obstruction Ppx -DVT ppx, SCDs -GI ppx, pepcid -encourage ambulation and IS use Discussed with Dr. La Zuniga, PGY-1
[2018-11-10 16:35] VITALS: RESP 20
[2018-11-10] MEDS: Vitamins A & D Oint UD Foilpak TOP SCH ×2 (16:54→21:47)
--- NOTE | 2018-11-10 18:30 | MRI ---
Date of service: 11/08/2018 PROCEDURE: Magnetic Resonance Cholangiopancreatography HISTORY: Elevated LFTs and total bilirubin COMPARISON: Comparison is made with the previous CT dated 09/19/2012 previous ultrasound of abdomen dated 11/08/2018 TECHNIQUE: Multiplanar, multisequence MR images of the abdomen were obtained, including heavily T2 weighted MRCP images of the biliary system. Rotating maximum intensity projection images of the biliary system were generated. FINDINGS: MRCP: The common bile duct is of a normal caliber. No evidence of choledocholithiasis. No intrahepatic biliary ductal dilatation. LIVER: The liver is mildly enlarged. There is mild hepatic steatosis is noted. GALLBLADDER: The gallbladder is distended contains large gallstones. SPLEEN: Unremarkable. PANCREAS: Unremarkable. ADRENALS: Unremarkable. KIDNEYS: Unremarkable. AORTA: No aneurysm. ASCITES: None. OTHER FINDINGS: None. IMPRESSION: Cholelithiasis without evidence of cholecystitis. No evidence of choledocholithiasis. No evidence of intrahepatic or extrahepatic biliary ductal dilatation. Preliminary report was submitted by [facility]
[2018-11-10] MEDS: Piperacill/Tazo 3.375gm in Dex 3.375 GM/50 ML BAG IVPB SCH (20:30)
[2018-11-11] MEDS: Piperacill/Tazo 3.375gm in Dex 3.375 GM/50 ML BAG IVPB SCH ×4 (01:28→13:11)
[2018-11-11] MEDS: Lactated Ringer's 1,000 ML IV SCH ×3 (01:33→13:26)
--- NOTE | 2018-11-11 03:58 | OP ---
PROCEDURE DATE: 11/10/2018 PREOPERATIVE DIAGNOSES: 1. Acute cholecystitis and cholelithiasis. 2. Mirizzi syndrome. POSTOPERATIVE DIAGNOSES: 1. Acute on chronic cholecystitis. 2. Mirizzi syndrome. PROCEDURES DONE: 1. Robotic cholecystectomy. 2. Robotic drainage of pericholecystic fluid collections. 3. Multilayer closure of umbilical wound, approximately 5 x 3 x 2 cm size. ANESTHESIA: General endotracheal tube anesthesia. ESTIMATED BLOOD LOSS: Around 20 mL. DRAINS: None. PATHOLOGY: Gallbladder with the gallstone was sent to pathology. COMPLICATIONS: None. INTRAOPERATIVE FINDINGS: The patient had changes of acute cholecystitis and cholelithiasis. DESCRIPTION OF PROCEDURE: On intraoperative steps, this is a 48-year-old male who was diagnosed with acute cholecystitis and cholelithiasis, and the patient was consented for laparoscopic assisted robotic cholecystectomy possible open, brought to the OR, placed supine on operating table. After induction of the anesthesia, the abdomen was prepped and draped in usual sterile fashion. The supraumbilical transverse incision was made using the Jemima technique. The peritoneal cavity was entered. Pneumo was created. Another 3-8 mm port was placed in upper abdomen. Robot was brought in. Camera arm as well as arm 1 and arm 2 was docked. The patient had extensive edema of the gallbladder, and there was extensive pericholecystic fluid collections and first gallbladder was retracted cranially. Calot's triangle dissection was done. The fluid collections were suctioned out, and the dissection was carried down through the cystic duct and common bile duct junction. Intraoperative Firefly was used. The patient found to have a large cystic duct and the top-down approach was done. After proper critical view of the safety dissection, the cystic duct and cystic artery was clipped at 3 places and cut in between 2 clips nearby gallbladder. Due to the extensive edema and due to extensive fluid collection, again the suction irrigation was done at the end of the procedure, and the gallbladder was dissected free from the gallbladder fossa. Now the size of the gallbladder was approximately 12 x 4 cm size with large stone. Due to the large size of the gallbladder, the umbilical wound was extended after undocking the robot and removing the instruments and the specimen was taken out. Now the muscle was repaired with 0 Vicryl interrupted sutures and the facial defect was also closed with 0 Vicryl interrupted suture, subcu with 3-0 Vicryl, skin with 4-0 Monocryl, and multilayer closure of the umbilicus was done. After that dry sterile dressing was applied. The patient tolerated the procedure well. The patient was extubated in OR, sent to the postanesthesia care unit in stable condition. Raymon Ro MD
[2018-11-11] MEDS ORDERED: Simethicone 80 mg Chewtab PO ONE (05:18)
[2018-11-11] MEDS: Vitamins A & D Oint UD Foilpak TOP SCH ×2 (05:37→13:28)
[2018-11-11 06:25] LABS: BASO % 0.2 % (0.0-2.0); EOS # 0.1 K/uL (0.0-0.7); EOS % 0.9 % (0.0-4.0); LYMPH % 18.1 % (20.0-40.0); MEAN CELL VOLUME 81.3 fL (80.0-94.0); MEAN CORPUSCULAR HEMOGLOBIN 26.7 pg (27.0-31.0); MEAN CORPUSCULAR HGB CONC 32.8 g/dL (33.0-37.0); MEAN PLATELET VOLUME 8.8 fL (7.2-11.7); MONO # 0.6 K/uL (0.0-0.8); MONO % 10.1 % (0.0-10.0); NEUT # 4.1 K/uL (1.8-7.0); NEUT % 70.7 % (50.0-75.0); RBC 4.49 Mil/uL (4.40-5.90); RED CELL DISTRIBUTION WIDTH 13.8 % (11.5-14.5); WHITE BLOOD COUNT 5.8 K/uL (4.8-10.8)
[2018-11-11 07:31] LABS: BLOOD UREA NITROGEN 7 mg/dL (9-20); GFR NON-AFRICAN AMERICAN > 60
[2018-11-11 07:32] LABS: ALB/GLOB RATIO 1.3 (1.0-2.1); ALBUMIN 3.7 g/dL (3.5-5.0); ALT/SGPT 257 U/L (21-72); AST/SGOT 119 U/L (17-59); CALCIUM 8.6 mg/dl (8.6-10.4)
[2018-11-11] MEDS: Oxycodone/Acetaminophen 5/325 mg Tab PO PRN (07:33)
[2018-11-11 07:54] VITALS: TEMP 99.1; O2SAT 95
--- NOTE | 2018-11-11 10:09 | CP.PCM.PN ---
Subjective - Date & Time of Evaluation Date of Evaluation: 11/11/18 Time of Evaluation: 07:00 - Subjective Subjective: General Surgery Pt seen and examined. Still complaining of pain and difficulty sleeping. No acute events overnight. Ambulating. No BM/flatus. Tolerated diet. Objective - Vital Signs/Intake and Output Vital Signs (last 24 hours): Temp Pulse Resp BP Pulse Ox 99.1 F 74 20 134/82 95 11/11/18 07:52 11/11/18 07:52 11/11/18 07:52 11/11/18 07:52 11/11/18 07:52 Intake and Output: 11/11/18 11/11/18 06:59 18:59 Intake Total 1150 1040 Balance 1150 1040 - Medications Medications: Current Medications Famotidine (Pepcid) 20 mg PO DAILY [facility] Last Admin: 11/11/18 09:02 Dose: 20 mg Lactated Ringer's (Lactated Ringer's) 1,000 mls @ 100 mls/hr IV .Q10H [facility] Last Admin: 11/11/18 03:30 Dose: Not Given Piperacillin Sod/Tazobactam Sod (Zosyn 3.375 Gm Iv Premix) 3.375 gm in 50 mls @ 100 mls/hr IVPB Q6H [facility]; Protocol Last Admin: 11/11/18 07:33 Dose: 100 mls/hr Morphine Sulfate (Morphine) 2 mg IVP Q3 PRN PRN Reason: Pain, severe (8-10) Oxycodone/Acetaminophen (Percocet 5/325 Mg Tab) 1 tab PO Q6H PRN PRN Reason: Pain, moderate (4-7) Stop: 11/13/18 11:46 Last Admin: 11/11/18 07:33 Dose: 1 tab Vitamin A (Vitamin A & D Oint Ud Foilpak) 1 ea TOP Q8 [facility] Last Admin: 11/11/18 05:37 Dose: 1 ea - Labs Labs: 11/11/18 06:18 11/11/18 06:18 PT 12.9 SECONDS (9.7-12.2) H 11/10/18 06:54 INR 1.2 11/10/18 06:54 APTT 32 SECONDS (21-34) 11/10/18 06:54 - Constitutional Appears: Non-toxic, No Acute Distress - Head Exam Head Exam: ATRAUMATIC, NORMOCEPHALIC - Eye Exam Eye Exam: EOMI. absent: Scleral icterus - Respiratory Exam Respiratory Exam: NORMAL BREATHING PATTERN. absent: Respiratory Distress - Cardiovascular Exam Cardiovascular Exam: RRR, +S1, +S2 - GI/Abdominal Exam GI & Abdominal Exam: Distended (mild), Soft, Tenderness (in epigastrum). absent: Firm, Guarding, Rigid, Rebound Additional comments: dressings C/D/I - Extremities Exam Extremities Exam: Normal Capillary Refill. absent: Calf Tenderness, Pedal Edema - Neurological Exam Neurological Exam: Alert, Awake, Oriented x3 - Skin Skin Exam: Dry, Warm Assessment and Plan - Assessment and Plan (Free Text) Assessment: 48M POD#1 s/p robotic cholecystectomy Plan: Ok for DC from surgical standpoint. DC on 1 week levaquin and 5 days toradol. Follow up in office in 1-2 weeks Call for fever more than 101 or pain uncontrolled by meds. Ok to shower, keep dressings dry. Outer dressings can come off in 3-4 days, leave inner dressings to fall off on their own Regular diet, avoid fatty foods if causing diarrhea. D/W Dr. Jayjay Stubbs PGY4
--- NOTE | 2018-11-11 13:56 | CP.PCM.DIS ---
<Radha Zuniga - Last Filed: 11/11/18 13:51> Provider - Provider Date of Admission: 11/08/18 14:54 Attending physician: Elliot Morales MD Consults: 11/08/18 13:32 General Surgery Consult Stat Comment: Consulting Provider: Raymon Ro Consulting Physician: Raymon Ro Reason for Consult: cholecystitis Time Spent in preparation of Discharge (in minutes): 29 Hospital Course - Lab Results Lab Results: Most Recent Lab Values WBC 5.8 K/uL (4.8-10.8) D 11/11/18 06:18 RBC 4.49 Mil/uL (4.40-5.90) 11/11/18 06:18 Hgb 12.0 g/dL (12.0-18.0) 11/11/18 06:18 Hct 36.5 % (35.0-51.0) 11/11/18 06:18 MCV 81.3 fL (80.0-94.0) 11/11/18 06:18 MCH 26.7 pg (27.0-31.0) L 11/11/18 06:18 MCHC 32.8 g/dL (33.0-37.0) L 11/11/18 06:18 RDW 13.8 % (11.5-14.5) 11/11/18 06:18 Plt Count 160 K/uL (130-400) 11/11/18 06:18 MPV 8.8 fL (7.2-11.7) 11/11/18 06:18 Neut % (Auto) 70.7 % (50.0-75.0) 11/11/18 06:18 Lymph % (Auto) 18.1 % (20.0-40.0) L 11/11/18 06:18 [place] % (Auto) 10.1 % (0.0-10.0) H 11/11/18 06:18 Eos % (Auto) 0.9 % (0.0-4.0) 11/11/18 06:18 Baso % (Auto) 0.2 % (0.0-2.0) 11/11/18 06:18 Neut # (Auto) 4.1 K/uL (1.8-7.0) 11/11/18 06:18 Lymph # (Auto) 1.0 K/uL (1.0-4.3) 11/11/18 06:18 [place] # (Auto) 0.6 K/uL (0.0-0.8) 11/11/18 06:18 Eos # (Auto) 0.1 K/uL (0.0-0.7) 11/11/18 06:18 Baso # (Auto) 0.0 K/uL (0.0-0.2) 11/11/18 06:18 PT 12.9 SECONDS (9.7-12.2) H 11/10/18 06:54 INR 1.2 11/10/18 06:54 APTT 32 SECONDS (21-34) 11/10/18 06:54 Sodium 135 mmol/L (132-148) 11/11/18 06:18 Potassium 3.6 mmol/L (3.6-5.2) 11/11/18 06:18 Chloride 97 mmol/L (98-107) L 11/11/18 06:18 Carbon Dioxide 30 mmol/L (22-30) 11/11/18 06:18 Anion Gap 13 (10-20) 11/11/18 06:18 BUN 7 mg/dL (9-20) L 11/11/18 06:18 Creatinine 1.0 mg/dL (0.8-1.5) 11/11/18 06:18 Est GFR ( Amer) > 60 11/11/18 06:18 Est GFR (Non-Af Amer) > 60 11/11/18 06:18 Random Glucose 117 mg/dL (75-110) H 11/11/18 06:18 Calcium 8.6 mg/dl (8.6-10.4) 11/11/18 06:18 Phosphorus 3.4 mg/dL (2.5-4.5) 11/09/18 08:07 Magnesium 2.0 mg/dL (1.6-2.3) 11/09/18 08:07 Total Bilirubin 1.4 mg/dL (0.2-1.3) H 11/11/18 06:18 AST 119 U/L (17-59) H 11/11/18 06:18 ALT 257 U/L (21-72) H 11/11/18 06:18 Alkaline Phosphatase 96 U/L (38-126) 11/11/18 06:18 Total Protein 6.5 g/dL (6.3-8.3) 11/11/18 06:18 Albumin 3.7 g/dL (3.5-5.0) 11/11/18 06:18 Globulin 2.9 gm/dL (2.2-3.9) 11/11/18 06:18 Albumin/Globulin Ratio 1.3 (1.0-2.1) 11/11/18 06:18 Amylase 65 U/L (30-110) 11/08/18 11:04 Lipase 71 U/L (23-300) 11/08/18 11:04 Urine Color Yellow (YELLOW) 11/08/18 11:04 Urine Clarity Hazy (Clear) 11/08/18 11:04 Urine pH 7.0 (5.0-8.0) 11/08/18 11:04 Ur Specific Dickinson 1.024 (1.003-1.030) 11/08/18 11:04 Urine Protein 1+ mg/dL (NEGATIVE) H 11/08/18 11:04 Urine Glucose (UA) Normal mg/dL (Normal) 11/08/18 11:04 Urine Ketones Negative mg/dL (NEGATIVE) 11/08/18 11:04 Urine Blood Negative (NEGATIVE) 11/08/18 11:04 Urine Nitrate Negative (NEGATIVE) 11/08/18 11:04 Urine Bilirubin Negative (NEGATIVE) 11/08/18 11:04 Urine Urobilinogen 4.0 mg/dL (0.2-1.0) 11/08/18 11:04 Ur Leukocyte Esterase Neg Mima/uL (Negative) 11/08/18 11:04 Urine WBC (Auto) 8 /hpf (0-5) H 11/08/18 11:04 Urine RBC (Auto) 3 /hpf (0-3) 11/08/18 11:04 Amorphous Sediment Few /ul (<OCC) H 11/08/18 11:04 Urine Bacteria Occ (<OCC) H 11/08/18 11:04 Hepatitis A IgM Ab Negative (NEGATIVE) 11/09/18 08:07 Hep Bs Antigen Negative (NEGATIVE) 11/09/18 08:07 Hep B Core IgM Ab Negative (NEGATIVE) 11/09/18 08:07 Hepatitis C Antibody Negative (NEGATIVE) 11/09/18 08:07 - Hospital Course Hospital Course: Patient presented to ED for evaluation and treatment of abdominal pain. Abdominal US and MRCP consistentent with findings of cholelithiasis. Patient started on IV Abx and pain control. Surgery, Dr. Ro consulted. Pt underwent a laparoscopic cholecystectomy with no complications. Patient stable for discharge on PO antibiotics and pain control. Patient to follow up with Dr. Ro as instructed. HPI on admission: 48 year old male with no significant past medical history presents to the ED today complaining of abdominal pain. Patient reports the abdominal pain is located epigastric region. It is non radiating and sharp pain in quality. The pain first started about 3 weeks ago. At first it was on and off, but it became worse last night with multiple episodes of non bloody and no bilious vomiting. The pain is worse with motion and food intake. Other associated symptoms include fatigue and occasional diarrhea. He denies having fever, chills, headache, shortness of breath, chest pain, or urinary symptoms. Refer to EMR for further details Discharge Exam - Head Exam Head Exam: ATRAUMATIC, NORMAL INSPECTION, NORMOCEPHALIC - Eye Exam Eye Exam: EOMI. absent: Normal appearance (skin abrasions over right upper/lower eyelid) - ENT Exam ENT Exam: Mucous Membranes Moist - Respiratory Exam Respiratory Exam: Clear to PA & Lateral, NORMAL BREATHING PATTERN, UNREMARKABLE - Cardiovascular Exam Cardiovascular Exam: REGULAR RHYTHM, +S1, +S2 - GI/Abdominal Exam GI & Abdominal Exam: Normal Bowel Sounds, Tenderness (tender to palpation jeffery- incisionally), Unremarkable. absent: Distended - Extremities Exam Extremities exam: normal inspection - Neurological Exam Neurological exam: Alert, Oriented x3 - Psychiatric Exam Psychiatric exam: Normal Affect, Normal Mood - Skin Skin Exam: Dry, Intact, Normal Color Discharge Plan - Follow Up Plan Condition: STABLE Disposition: HOME/ ROUTINE Instructions: Levofloxacin (Systemic), Gallstones (DC), Cholecystitis (DC) Additional Instructions: Patient is stable for discharge home. Patient being given scripts for antibiotics, Levaquin, and pain control with Toradol to be taken as directed. Patient instructed how to care for wound by surgery, with an effort to keep incision clean and dry. Patient to follow up with Dr. Ro in his office in 10 days from discharge. Do not lift anything greater than 15 lbs and take care not to strain. Patient advised to call Dr. Ro or return to ED with any worsening of symptoms such as persistent fever >100.4, pain uncontrolled with medication, vomiting or diarrhea with inability to hold food or drink down; in addition to any other worsening of symptoms. Referrals: Raymon Ro MD [Staff Provider] - <Clifford Tovar - Last Filed: 11/11/18 16:44> Provider - Provider Date of Admission: 11/08/18 14:54 Attending physician: Elliot Morales MD Consults: 11/08/18 13:32 General Surgery Consult Stat Comment: Consulting Provider: Raymon Ro Consulting Physician: Raymon Ro Reason for Consult: cholecystitis Hospital Course - Lab Results Lab Results: Most Recent Lab Values WBC 5.8 K/uL (4.8-10.8) D 11/11/18 06:18 RBC 4.49 Mil/uL (4.40-5.90) 11/11/18 06:18 Hgb 12.0 g/dL (12.0-18.0) 11/11/18 06:18 Hct 36.5 % (35.0-51.0) 11/11/18 06:18 MCV 81.3 fL (80.0-94.0) 11/11/18 06:18 MCH 26.7 pg (27.0-31.0) L 11/11/18 06:18 MCHC 32.8 g/dL (33.0-37.0) L 11/11/18 06:18 RDW 13.8 % (11.5-14.5) 11/11/18 06:18 Plt Count 160 K/uL (130-400) 11/11/18 06:18 MPV 8.8 fL (7.2-11.7) 11/11/18 06:18 Neut % (Auto) 70.7 % (50.0-75.0) 11/11/18 06:18 Lymph % (Auto) 18.1 % (20.0-40.0) L 11/11/18 06:18 [place] % (Auto) 10.1 % (0.0-10.0) H 11/11/18 06:18 Eos % (Auto) 0.9 % (0.0-4.0) 11/11/18 06:18 Baso % (Auto) 0.2 % (0.0-2.0) 11/11/18 06:18 Neut # (Auto) 4.1 K/uL (1.8-7.0) 11/11/18 06:18 Lymph # (Auto) 1.0 K/uL (1.0-4.3) 11/11/18 06:18 Prairie # (Auto) 0.6 K/uL (0.0-0.8) 11/11/18 06:18 Eos # (Auto) 0.1 K/uL (0.0-0.7) 11/11/18 06:18 Baso # (Auto) 0.0 K/uL (0.0-0.2) 11/11/18 06:18 PT 12.9 SECONDS (9.7-12.2) H 11/10/18 06:54 INR 1.2 11/10/18 06:54 APTT 32 SECONDS (21-34) 11/10/18 06:54 Sodium 135 mmol/L (132-148) 11/11/18 06:18 Potassium 3.6 mmol/L (3.6-5.2) 11/11/18 06:18 Chloride 97 mmol/L (98-107) L 11/11/18 06:18 Carbon Dioxide 30 mmol/L (22-30) 11/11/18 06:18 Anion Gap 13 (10-20) 11/11/18 06:18 BUN 7 mg/dL (9-20) L 11/11/18 06:18 Creatinine 1.0 mg/dL (0.8-1.5) 11/11/18 06:18 Est GFR ( Amer) > 60 11/11/18 06:18 Est GFR (Non-Af Amer) > 60 11/11/18 06:18 Random Glucose 117 mg/dL (75-110) H 11/11/18 06:18 Calcium 8.6 mg/dl (8.6-10.4) 11/11/18 06:18 Phosphorus 3.4 mg/dL (2.5-4.5) 11/09/18 08:07 Magnesium 2.0 mg/dL (1.6-2.3) 11/09/18 08:07 Total Bilirubin 1.4 mg/dL (0.2-1.3) H 11/11/18 06:18 AST 119 U/L (17-59) H 11/11/18 06:18 ALT 257 U/L (21-72) H 11/11/18 06:18 Alkaline Phosphatase 96 U/L (38-126) 11/11/18 06:18 Total Protein 6.5 g/dL (6.3-8.3) 11/11/18 06:18 Albumin 3.7 g/dL (3.5-5.0) 11/11/18 06:18 Globulin 2.9 gm/dL (2.2-3.9) 11/11/18 06:18 Albumin/Globulin Ratio 1.3 (1.0-2.1) 11/11/18 06:18 Amylase 65 U/L (30-110) 11/08/18 11:04 Lipase 71 U/L (23-300) 11/08/18 11:04 Urine Color Yellow (YELLOW) 11/08/18 11:04 Urine Clarity Hazy (Clear) 11/08/18 11:04 Urine pH 7.0 (5.0-8.0) 11/08/18 11:04 Ur Specific Dickinson 1.024 (1.003-1.030) 11/08/18 11:04 Urine Protein 1+ mg/dL (NEGATIVE) H 11/08/18 11:04 Urine Glucose (UA) Normal mg/dL (Normal) 11/08/18 11:04 Urine Ketones Negative mg/dL (NEGATIVE) 11/08/18 11:04 Urine Blood Negative (NEGATIVE) 11/08/18 11:04 Urine Nitrate Negative (NEGATIVE) 11/08/18 11:04 Urine Bilirubin Negative (NEGATIVE) 11/08/18 11:04 Urine Urobilinogen 4.0 mg/dL (0.2-1.0) 11/08/18 11:04 Ur Leukocyte Esterase Neg Mima/uL (Negative) 11/08/18 11:04 Urine WBC (Auto) 8 /hpf (0-5) H 11/08/18 11:04 Urine RBC (Auto) 3 /hpf (0-3) 11/08/18 11:04 Amorphous Sediment Few /ul (<OCC) H 11/08/18 11:04 Urine Bacteria Occ (<OCC) H 11/08/18 11:04 Hepatitis A IgM Ab Negative (NEGATIVE) 11/09/18 08:07 Hep Bs Antigen Negative (NEGATIVE) 11/09/18 08:07 Hep B Core IgM Ab Negative (NEGATIVE) 11/09/18 08:07 Hepatitis C Antibody Negative (NEGATIVE) 11/09/18 08:07 Attending/Attestation - Attestation I have personally seen and examined this patient.: Yes I have fully participated in the care of the patient.: Yes I have reviewed all pertinent clinical information, including history, physical exam and plan: Yes Notes (Text): 11/11/18 16:42 Medical attending: Patient was seen and examined by me, reviewed the above note by the resident and agree with the above The patient's eye lid and skin under the eye is not painful today. He reports no irritation like he previously had yesterday. Vision is ok he say On exam there is no bleeding, PERRL and EOMI on exam. The dressing over the laprascopic sites are clean, dry and intact. No bleeding. Patient will be discharged today thank you Clifford Tovar
[2018-11-11 15:46] VITALS: BP 133/88; PULSE 77
== END 2018-11-11 16:30 | disposition home or self-care (01) | DRG 263 ==
LOC: C.ER 10:16 → C.9E 14:54 → C.3T 15:30
PROVIDERS: ADMIT Internal Medicine; ATTEND Internal Medicine
PROC: 0F944ZZ Drainage of Gallbladder, Percutaneous Endoscopic Approach (ICD-10-PCS; 2018-11-10)
PROC: 8E0W4CZ Robotic Assisted Procedure of Trunk Region, Percutaneous Endoscopic Approach (ICD-10-PCS; 2018-11-10)
PROC: 0FT44ZZ Resection of Gallbladder, Percutaneous Endoscopic Approach (ICD-10-PCS; principal; 2018-11-10 13:45)
DX: K80.13 Calculus of gallbladder with acute and chronic cholecystitis with obstruction (principal); K83.1 Obstruction of bile duct; K82.8 Other specified diseases of gallbladder; K76.0 Fatty (change of) liver, not elsewhere classified; K75.9 Inflammatory liver disease, unspecified; N18.9 Chronic kidney disease, unspecified; S00.219A Abrasion of unspecified eyelid and periocular area, initial encounter; Z87.442 Personal history of urinary calculi

== ENCOUNTER 2018-12-20 18:22 | Emergency (ER) | payer SELFPAY ==
[2018-12-20 18:22] VITALS: BMI 25.7
[2018-12-20 18:49] LABS: BASO % 0.8 % (0.0-2.0); EOS # 0.1 K/uL (0.0-0.7); EOS % 1.8 % (0.0-4.0); HEMOGLOBIN 12.7 g/dL (12.0-18.0); LYMPH # 2.5 K/uL (1.0-4.3); MEAN CELL VOLUME 79.3 fL (80.0-94.0); MEAN CORPUSCULAR HEMOGLOBIN 25.9 pg (27.0-31.0); MEAN CORPUSCULAR HGB CONC 32.7 g/dL (33.0-37.0); MEAN PLATELET VOLUME 8.5 fL (7.2-11.7); MONO # 0.4 K/uL (0.0-0.8); MONO % 7.8 % (0.0-10.0); NEUT # 2.7 K/uL (1.8-7.0); NEUT % 46.6 % (50.0-75.0); NRBC % 0.1 % (0.0-2.0); RBC 4.92 Mil/uL (4.40-5.90); RED CELL DISTRIBUTION WIDTH 13.7 % (11.5-14.5); WHITE BLOOD COUNT 5.8 K/uL (4.8-10.8)
[2018-12-20 19:02] LABS: ALB/GLOB RATIO 1.4 (1.0-2.1); ALBUMIN 4.6 g/dL (3.5-5.0); ALT/SGPT 26 U/L (21-72); AST/SGOT 24 U/L (17-59); BLOOD UREA NITROGEN 17 mg/dL (9-20); CALCIUM 9.7 mg/dl (8.6-10.4); GFR NON-AFRICAN AMERICAN > 60
[2018-12-20] MEDS ORDERED: Sodium Chloride 0.9% 1,000 ML IV ONE (19:07)
[2018-12-20] MEDS ORDERED: Iohexol 240 (50 ml) PO STA (19:07)
[2018-12-20] MEDS ORDERED: Iohexol 240 (50 ml) ONE (19:23)
[2018-12-20] MEDS ORDERED: Sodium Chloride 0.9% 1,000 ML ONE (19:24)
--- NOTE | 2018-12-20 19:43 | C.PDOC ---
History Of Present Illness 48 year old male presents to the ED complaining of left flank pain that radiates to the left lower quadrant. Reports he had a cholecystectomy by Dr. Ro on 11/08 with no complications. He was given IV antibiotics and medications. Reports he has abdominal bloating and discomfort for several days. States pain is worse when he walks or moves his left leg. Also notes he has watery stools after he eats and chest congestion with no cough. Denies any urinary symptoms, fever, chills, nausea, vomiting, or any other associated complaints. Time Seen by Provider: 12/20/18 18:40 Chief Complaint (Nursing): Abdominal Pain History Per: Patient History/Exam Limitations: no limitations Onset/Duration Of Symptoms: Days Current Symptoms Are (Timing): Still Present Location Of Pain/Discomfort: LLQ Associated Symptoms: Diarrhea. denies: Fever, Chills, Nausea, Vomiting, Urinary Symptoms Exacerbating Factors: Movement Past Medical History Reviewed: Historical Data, Nursing Documentation, Vital Signs Vital Signs: Last Vital Signs Temp 98.3 F 12/20/18 18:43 Pulse 73 12/20/18 18:43 Resp 18 12/20/18 18:43 BP 143/87 12/20/18 18:43 Pulse Ox 96 12/20/18 18:43 - Medical History PMH: Kidney Stones, Chronic Kidney Disease Surgical History: Cholecystectomy (11/08/2018) - [facility] Procedures DRAINAGE OF GALLBLADDER, PERCUTANEOUS ENDOSCOPIC APPROACH (11/08/18) RESECTION OF GALLBLADDER, PERCUTANEOUS ENDOSCOPIC APPROACH (11/08/18) ROBOTIC ASSISTED PROCEDURE OF TRUNK, PERC ENDO APPROACH (11/08/18) Family History: States: No Known Family Hx - Social History Hx Alcohol Use: No Hx Substance Use: No Review Of Systems Constitutional: Negative for: Fever, Chills Gastrointestinal: Positive for: Abdominal Pain, Diarrhea. Negative for: Nausea, Vomiting Genitourinary: Negative for: Dysuria, Frequency, Hematuria Physical Exam - Physical Exam Appears: Non-toxic Skin: Warm, Dry, No Rash Head: Normacephalic Eye(s): bilateral: Normal Inspection Nose: Normal Oral Mucosa: Moist Neck: Supple Chest: Symmetrical Cardiovascular: Rhythm Regular Respiratory: Rales (left base ), No Rhonchi, No Wheezing Gastrointestinal/Abdominal: Bowel Sounds (hyperactive), Soft, Tenderness (LLQ), No Distention, No Guarding, No Rebound, No Other (rigidity ) Neurological/Psych: Oriented x3, Normal Speech Gait: Steady ED Course And Treatment - Laboratory Results Result Diagrams: 12/20/18 18:45 12/20/18 18:45 Lab Results: Total Bilirubin 0.6 mg/dL (0.2-1.3) 12/20/18 18:45 AST 24 U/L (17-59) 12/20/18 18:45 ALT 26 U/L (21-72) 12/20/18 18:45 Alkaline Phosphatase 56 U/L (38-126) 12/20/18 18:45 Total Protein 7.7 g/dL (6.3-8.3) 12/20/18 18:45 Albumin 4.6 g/dL (3.5-5.0) 12/20/18 18:45 Globulin 3.2 gm/dL (2.2-3.9) 12/20/18 18:45 Albumin/Globulin Ratio 1.4 (1.0-2.1) 12/20/18 18:45 Lipase 60 U/L (23-300) 12/20/18 19:24 Lab Interpretation: Abnormal (+hematuria) O2 Sat by Pulse Oximetry: 96 (RA) Pulse Ox Interpretation: Normal - CT Scan/US CT ABD/PEL Other Rad Studies (CT/US): Read By Radiologist, Radiology Report Reviewed CT/US Interpretation: EXAM: CT Abdomen and Pelvis with IV contrast. CLINICAL HISTORY: Left sided flank pain, back pain since one week, history of cholelithiasis injected with 100 ml Visipaque 320 2.0 ml /sec,prepped with Omnipaque 240 ,finished po contrast at 19:25 prior MRCP 11/08/18, Ct from 2015. TECHNIQUE: Axial computed tomography images of the abdomen and pelvis with oral and intravenous contrast. 10.00 mGy-cm. CONTRAST: With; 100MLS VISI 320. COMPARISON: None provided. FINDINGS: LUNG BASES: The lung bases appear clear. No pleural effusions are seen. LIVER: Unremarkable. GALLBLADDER AND BILE DUCTS: The gallbladder is contracted, not well evaluated. No biliary jay jimmy dilatation is evident. PANCREAS: Unremarkable. SPLEEN: Unremarkable. ADRENAL GLANDS: Unremarkable. KIDNEYS, URETERS, AND BLADDER: 6 x 4 x 5 mm calculus is noted in the proximal left ureter producing moderate hydroureteronephrosis. There is perinephric stranding. Three punctate non-obstr ucting calculi are present in the left kidney (2 in the superior pole and 1 in the inferior pole). Several tiny cortical cysts are present in the right kidney. STOMACH AND BOWEL: Unremarkable appearance of the stomach and bowel. No evidence of bowel obstruction. No evidence suggesting enteritis or colitis. APPENDIX: No evidence of acute appendicitis on CT examination. PERITONEUM: No free fluid. No free air. LYMPH NODES: No lymphadenopathy is evident. REPRODUCTIVE: Unremarkable as visualized. VASCULATURE: No evidence of abdominal aortic aneurysm. BONES: No aggressive appearing osseous lesion. No acute osseous pathology evident. IMPRESSION: 1. 6 x 4 x 5 mm calculus is noted in the proximal left ureter producing moderate hydroureteronephrosis. There is perinephric stranding. 2. Three punctate non-obstructing calculi are present in the left kidney. 3. Several tiny cortical cysts are present in the right kidney. Reevaluation Time: 23:33 Reassessment Condition: Improved (after IV Toradol) - Physician Consult Information Time Consulting Physician Contacted: 23:35 Physician Contacted: Rufina Valerio Outcome Of Conversation: He will follow up in the office on Saturday Medical Decision Making Medical Decision Making: Plan - CT ABD/PEL - CXR - Bloodwork - Toradol 30mg IVP - IV fluids - UA Disposition Counseled Patient/Family Regarding: Studies Performed, Diagnosis, Need For Followup, Rx Given - Disposition Referrals: Rufina Valerio MD [Staff Provider] - Disposition: HOME/ ROUTINE Disposition Time: 23:36 Condition: IMPROVED Prescriptions: Ketorolac Tromethamine [Toradol] 10 mg PO QID PRN #20 tab PRN Reason: Pain, Severe (8-10) oxyCODONE/Acetaminophen [Percocet 5/325 mg Tab] 1 tab PO QID PRN #20 tab PRN Reason: Pain Tamsulosin [Flomax] 0.4 mg PO DAILY #30 cap Instructions: Kidney Stones in Adults Forms: [facility] (Estonian) - Clinical Impression Clinical Impression: Renal calculus - Scribe Statement The provider has reviewed the documentation as recorded by the Scribe Marilu Valles All medical record entries made by the Scribe were at my direction and p ersonally dictated by me. I have reviewed the chart and agree that the record accurately reflects my personal performance of the history, physical exam, medical decision making, and the department course for this patient. I have also personally directed, reviewed, and agree with the discharge instructions and disposition.
[2018-12-20] MEDS ORDERED: Iodixanol 320 MG/ML 100 ML BOTTLE IV ONE (20:35)
[2018-12-20 20:36] LABS: SQUAMOUS EPITHIAL < 1 /hpf (0-5); URINE BILIRUBIN NEGATIVE (NEGATIVE); URINE BLOOD 3+ (NEGATIVE); URINE CLARITY Clear (Clear); URINE COLOR Yellow (YELLOW); URINE GLUCOSE (UA) NORMAL (Normal); URINE LEUKOCYTE ESTERASE NEG Leu/uL (Negative); URINE PROTEIN NEGATIVE (NEGATIVE); URINE UROBILINOGEN NORMAL mg/dL (0.2-1.0)
[2018-12-20 21:13] VITALS: RESP 16
[2018-12-20 23:09] VITALS: O2SAT 96
[2018-12-20] MEDS ORDERED: Oxycodone/Acetaminophen 5/325 mg Tab PO STA (23:42)
[2018-12-20] MEDS ORDERED: Oxycodone/Acetaminophen 5/325 mg Tab ONE (23:50)
[2018-12-20 23:57] VITALS: BP 120/71; PULSE 65; TEMP 98.3
--- NOTE | 2018-12-21 08:50 | RAD ---
Date of service: 12/20/2018 HISTORY: abd pain COMPARISON: Correlation made with concurrent CT scan of the abdomen and pelvis TECHNIQUE: Chest PA and lateral FINDINGS: LUNGS: Mild bibasilar atelectasis PLEURA: No significant pleural effusion identified. No pneumothorax apparent. CARDIOVASCULAR: No aortic atherosclerotic calcification present. Normal cardiac size. No pulmonary vascular congestion. OSSEOUS STRUCTURES: No significant abnormalities. VISUALIZED UPPER ABDOMEN: Normal. OTHER FINDINGS: None. IMPRESSION: Mild bibasilar atelectasis
--- NOTE | 2018-12-21 12:38 | CT ---
Date of service: 12/20/2018 PROCEDURE: CT Abdomen and Pelvis. HISTORY: Abdominal pain COMPARISON: Comparison made with prior CT scan abdomen pelvis 09/19/2012. TECHNIQUE: Contiguous axial images of the abdomen and pelvis performed following oral and intravenous injection of approximately 100 cc Visipaque 320 contrast material. Additional 2D sagittal and coronal reformats generated. Radiation dose: Total exam DLP = 599.13 mGy-cm. This CT exam was performed using one or more of the following dose reduction techniques: Automated exposure control, adjustment of the mA and/or kV according to patient size, and/or use of iterative reconstruction technique. FINDINGS: LOWER THORAX: Unremarkable. LIVER: Mild fatty hepatic infiltration. Small approximately 9.0 x 2.8 mm elliptical shaped low-attenuation lesion bordering inferior hepatic surface in the region of the gallbladder fossa could represent small cyst GALLBLADDER AND BILE DUCTS: Gallbladder not visualized presumably secondary to prior cholecystectomy however no metallic clips are identified in the gallbladder fossa. Clinical correlation with surgical history recommended. PANCREAS: Unremarkable. No mass. No ductal dilatation. SPLEEN: Unremarkable. No splenomegaly. ADRENALS: No adrenal lesions. KIDNEYS AND URETERS: Kidneys demonstrate symmetric nephrograms. There is an approximately 6 mm obstructing calculus in the proximal-mid left ureter with moderate left-sided hydronephrosis. There are 2 tiny calculi seen in the upper pole collecting system left kidney 1 measuring approximately 2.8 mm and another measuring approximately a mm. Approximately 2 mm nonobstructing calculus also seen in the lower pole collecting system left kidney.. Tiny approximately 2 mm nonobstructing calculus midpole right kidney.. There also appear to be a 2 small partially exophytic low-attenuation foci likely representing cysts posteromedial cortex mid pole right kidney and another in the posterior cortex lower pole right kidney.. BLADDER: Urinary bladder is physiologically distended. REPRODUCTIVE: Prostate gland appears enlarged measuring approximately 4 cm in transverse dimension. APPENDIX: Normal appendix. BOWEL: Evaluation of the bowel is somewhat limited due to incomplete opacification. Stomach is incompletely distended with thick-walled appearance. Visualized loops of small bowel exhibit normal contour and caliber. No evidence of acute mechanical small bowel obstruction with oral contrast material extending to the level of the rectum. PERITONEUM: Unremarkable. No fluid collection. No free air. Tiny bilateral fat containing inguinal hernias. LYMPH NODES: Unremarkable. No enlarged lymph nodes. VASCULATURE: Unremarkable. No aortic aneurysm. No aortic atherosclerotic calcification or mural plaque present. BONES: No fracture or destructive lesion. OTHER FINDINGS: None. IMPRESSION: There is an obstructing approximately 6 mm the calculus proximal/mid left ureter with moderate left-sided hydronephrosis. There are 2 tiny calculi seen in the upper pole collecting system left kidney 1 measuring approximately 2.8 mm and another measuring approximately a mm. Approximately 2 mm nonobstructing calculus also seen in the lower pole collecting system left kidney.. Tiny approximately 2 mm nonobstructing calculus midpole right kidney.. There also appear to be a 2 small partially exophytic low-attenuation foci likely representing cysts posteromedial cortex mid pole right kidney and another in the posterior cortex lower pole right kidney.. Cholecystectomy. Minor fatty hepatic infiltration. Small approximately 9.0 x 2.8 mm elliptical shaped low-attenuation lesion bordering inferior hepatic surface in the region of the gallbladder fossa could represent small cyst
== END 2018-12-20 23:57 | disposition home or self-care (01) ==
LOC: C.ER 18:22
DX: N13.2 Hydronephrosis with renal and ureteral calculous obstruction (principal)
CPT/HCPCS: 71046; 74177; 80053; 81001; 83690; 85025; 96374; 99285; J1885; J7030; Q9966; Q9967

== ENCOUNTER 2019-02-10 23:22 | Observation (INO) | payer SELFPAY ==
[2019-02-10 23:22] VITALS: BMI 25.7
[2019-02-10] MEDS ORDERED: Sodium Chloride 0.9% 1,000 ML IV ONE (23:51)
--- NOTE | 2019-02-11 00:03 | C.PDOC ---
History Of Present Illness 47 y o M has h/o kidney stone presents to the ED c/o left side abdominal pain that started this evening around 6pm. Patient states the pain feels like when he had kidney stones on that side. Patient did not take any medication for pain. Patient denies nausea, vomiting, fever, chills, back pain. Time Seen by Provider: 02/10/19 23:35 Chief Complaint (Nursing): Abdominal Pain History Per: Patient History/Exam Limitations: no limitations Onset/Duration Of Symptoms: Hrs, Sudden Onset, Persistent Current Symptoms Are (Timing): Still Present Past Medical History Reviewed: Historical Data, Nursing Documentation, Vital Signs Vital Signs: Last Vital Signs Temp 97.8 F 02/10/19 23:28 Pulse 83 02/10/19 23:28 Resp 20 02/10/19 23:28 BP 178/87 H 02/10/19 23:28 Pulse Ox 96 02/10/19 23:28 - Medical History PMH: Kidney Stones, Chronic Kidney Disease Surgical History: Cholecystectomy (11/08/2018) - [facility] Procedures DRAINAGE OF GALLBLADDER, PERCUTANEOUS ENDOSCOPIC APPROACH (11/08/18) RESECTION OF GALLBLADDER, PERCUTANEOUS ENDOSCOPIC APPROACH (11/08/18) ROBOTIC ASSISTED PROCEDURE OF TRUNK, PERC ENDO APPROACH (11/08/18) Family History: States: Unknown Family Hx - Social History Hx Alcohol Use: No Hx Substance Use: No Review Of Systems Constitutional: Negative for: Fever, Chills, Sweats Cardiovascular: Negative for: Chest Pain Respiratory: Negative for: Cough, Shortness of Breath Gastrointestinal: Positive for: Abdominal Pain. Negative for: Nausea, Vomiting, Diarrhea Genitourinary: Negative for: Dysuria, Frequency, Hematuria Physical Exam - Physical Exam Appears: Well, Non-toxic, Other (uncomfortable) Skin: Normal Color, Warm, Dry Head: Atraumatic, Normacephalic Eye(s): bilateral: PERRL, EOMI Oral Mucosa: Moist Cardiovascular: Rhythm Regular Respiratory: Normal Breath Sounds Gastrointestinal/Abdominal: Bowel Sounds, Tenderness (left lower quadrant, left mid abdomen), No Distention, No Guarding, No Rebound Back: No CVA Tenderness Extremity: Normal ROM, No Pedal Edema Neurological/Psych: Oriented x3, Normal Motor, Normal Sensation ED Course And Treatment O2 Sat by Pulse Oximetry: 96 Medical Decision Making Medical Decision Making: Patient presents as above, plan is: IVF Toradol Labs CT abd/pelvis and reassess. Disposition - Disposition Disposition Time: 00:23 Condition: STABLE - Clinical Impression Clinical Impression: Flank pain, Abdominal pain Physician Patient Turnover Patient Signed Over To: Kwasi Turcios Handoff Comments: pending labs, ct, dispo
[2019-02-11] MEDS ORDERED: Sodium Chloride 0.9% 1,000 ML ONE ×4 (00:04→09:50)
[2019-02-11 01:16] LABS: BASO % 0.4 % (0.0-2.0); EOS # 0.1 K/uL (0.0-0.7); HEMOGLOBIN 13.1 g/dL (12.0-18.0); LYMPH # 3.2 K/uL (1.0-4.3); LYMPH % 46.2 % (20.0-40.0); MEAN CELL VOLUME 82.1 fL (80.0-94.0); MEAN CORPUSCULAR HEMOGLOBIN 26.1 pg (27.0-31.0); MEAN CORPUSCULAR HGB CONC 31.7 g/dL (33.0-37.0); MEAN PLATELET VOLUME 9.7 fL (7.2-11.7); MONO # 0.5 K/uL (0.0-0.8); MONO % 7.8 % (0.0-10.0); NEUT % 43.6 % (50.0-75.0); NRBC % 0.1 % (0.0-2.0); RBC 5.01 Mil/uL (4.40-5.90); RED CELL DISTRIBUTION WIDTH 14.4 % (11.5-14.5)
[2019-02-11 01:24] LABS: ALB/GLOB RATIO 1.5 (1.0-2.1); ALBUMIN 4.7 g/dL (3.5-5.0); BLOOD UREA NITROGEN 22 mg/dL (9-20); CALCIUM 9.3 mg/dl (8.6-10.4); GFR NON-AFRICAN AMERICAN > 60
[2019-02-11] MEDS ORDERED: Sodium Chloride 0.9% 1,000 ML IV ONE ×2 (01:26→04:05)
[2019-02-11] MEDS ORDERED: Lidocaine 109 MG in Sodium Chloride 0.9% 100 ML IV STA (01:37)
[2019-02-11 01:50] LABS: ALT/SGPT 33 U/L (21-72); AST/SGOT 41 U/L (17-59)
[2019-02-11] MEDS ORDERED: Alum-Mag Hydrox-Simethicone Susp (30 mL) PO STA (02:23)
[2019-02-11] MEDS ORDERED: Alum-Mag Hydrox-Simethicone Susp (30 mL) ONE (02:29)
[2019-02-11 02:34] LABS: SQUAMOUS EPITHIAL < 1 /hpf (0-5); URINE BILIRUBIN NEGATIVE (NEGATIVE); URINE BLOOD 3+ (NEGATIVE); URINE CLARITY Hazy (Clear); URINE COLOR Yellow (YELLOW); URINE GLUCOSE (UA) NORMAL (Normal); URINE LEUKOCYTE ESTERASE NEG Leu/uL (Negative); URINE PROTEIN 1+ mg/dL (NEGATIVE); URINE UROBILINOGEN NORMAL mg/dL (0.2-1.0)
[2019-02-11] MEDS ORDERED: Morphine 4 MG/ML VIAL ONE (05:57)
--- NOTE | 2019-02-11 08:09 | CT ---
CT abdomen and pelvis HISTORY: Abdominal pain. COMPARISON: None available. TECHNIQUE: Multiple contiguous axial images were performed through the abdomen and pelvis without the use of intravenous contrast. Subsequently, sagittal and coronal reformatted images were obtained. This CT exam was performed using one or more of the following dose reduction techniques: Automated exposure control, adjustment of the mA and/or kV according to patient size, and/or use of iterative reconstruction technique. Findings: Scattered atelectasis at the lung bases and lingula. Trace pericardial thickening. Liver is preserved. Resected and or contracted gallbladder. Spleen is preserved. Adrenal glands are preserved. Pancreas is preserved. Distended stomach. Mildly prominent loops of small bowel in the left mid abdomen measuring up to 2.6 centimeters in diameter. It is unclear if this represents a focal ileus or perhaps focal enteritis. It is believed less likely to represent emerging early or partial small bowel obstruction. Clinical correlation. Short-term imaging follow-up may be helpful if clinically indicated. Clinical correlation. Atherosclerotic calcification and plaque within the aorta. Few scattered punctate nonobstructive calculi seen throughout the right kidney without gross hydronephrosis. Moderate left renal hydroureteronephrosis within obstructing 7 millimeter calculus in the proximal to mid right ureter. Additional scattered calculi throughout the left kidney occluding in the lower pole measuring 5.5 millimeters and in the upper pole measuring up to 3 millimeters. Underdistended urinary bladder. Heterogeneous and prominent prostate and seminal vesicles. Fecal retention in the colon. Appendix is visualized measuring up to 5 millimeters in width, within normal limits. Few shotty para-aortic and inguinal lymph nodes. Few shotty mesenteric lymph nodes. Degenerative changes in the spine. Impression: 1. Moderate left renal hydroureteronephrosis with obstructing 7 mm calculus in the proximal to mid right ureter with additional scattered calculi throughout the left kidney as described above. 2. Scattered punctate nonobstructive subcentimeter calculi seen throughout the right kidney. 3. Mildly prominent loops of small bowel in the left mid abdomen measuring up to 2.6 centimeters in diameter. It is unclear if this represents a focal ileus or perhaps focal enteritis. It is believed less likely to represent emerging early or partial small bowel obstruction. Clinical correlation. Short-term imaging follow-up may be helpful if clinically indicated. Clinical correlation. 4. Additional findings as above. A preliminary report was generated at 1:20 a.m. on 02/11/[address] Prasanna George from [facility] rad.
--- NOTE | 2019-02-11 09:07 | CP.PCM.HP ---
<Radha Zuniga - Last Filed: 02/11/19 14:12> History of Present Illness - History of Present Illness History of Present Illness: CC: Left lower abdominal/back pain Patient is a 48 year old male with pmhx of renal calculi presenting to the ED with complaints of acute onset left lower abdominal, flank and back pain. Patient reports pain presented abruptly at 7pm last night, severe in intensity 10/10, beginning in the left lower back and radiating around the left flank to left lower abdomen. Patient reports pain was accompanied by 1 episode of non- bloody, non-bilious emesis, and subsequent sweats and chills. Patient reports a history of similar episodes in the past, less severe in intensity, with most recent episode prompting ED eval and treatment in December,. 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 absent: Diarrhea - Genitourinary Genitourinary: Flank Pain (left), Hx Renal/Bladder Calculi. absent: Change in Urinary Stream, Dysuria, Hematuria, Hx /Renal Surgery Past Patient History - Infectious Disease Hx of Infectious Diseases: None - Past Medical History & Family History Past Medical History?: Yes - Past Social History Smoking Status: Unknown If Ever Smoked - CARDIAC Hx Cardiac Disorders: No - PULMONARY Hx Respiratory Disorders: No - NEUROLOGICAL Hx Neurological Disorder: No - HEENT Hx HEENT Problems: No - RENAL Hx Chronic Kidney Disease: Yes Hx Kidney Stones: Yes - ENDOCRINE/METABOLIC Hx Endocrine Disorders: No - HEMATOLOGICAL/ONCOLOGICAL Hx Blood Disorders: No - INTEGUMENTARY Hx Dermatological Problems: No - MUSCULOSKELETAL/RHEUMATOLOGICAL Hx Musculoskeletal Disorders: No - GASTROINTESTINAL Hx Gastrointestinal Disorders: No - GENITOURINARY/GYNECOLOGICAL Hx Genitourinary Disorders: Yes Other/Comment: Kidney stones - PSYCHIATRIC Hx Substance Use: No - SURGICAL HISTORY Hx Cholecystectomy: Yes (11/08/2018) - ANESTHESIA Hx Anesthesia: No Meds Allergies/Adverse Reactions: Allergies Allergy/AdvReac Type Severity Reaction Status Date / Time No Known Allergies Allergy Verified 12/20/18 18:27 Physical Exam - Constitutional Appears: Non-toxic, No Acute Distress - Head Exam Head Exam: ATRAUMATIC, NORMAL INSPECTION, NORMOCEPHALIC - Eye Exam Eye Exam: EOMI, Normal appearance - ENT Exam ENT Exam: Mucous Membranes Moist, Normal Exam - Neck Exam Neck exam: Positive for: Normal Inspection - Respiratory Exam Respiratory Exam: Clear to Auscultation Bilateral, NORMAL BREATHING PATTERN - Cardiovascular Exam Cardiovascular Exam: Tachycardia, REGULAR RHYTHM, +S1, +S2 - GI/Abdominal Exam GI & Abdominal Exam: Normal Bowel Sounds, Soft. absent: Distended, Firm, Rigid - Extremities Exam Extremities exam: Positive for: normal inspection. Negative for: calf tenderness, pedal edema - Back Exam Back exam: CVA tenderness (L), NORMAL INSPECTION. absent: CVA tenderness (R) Additional comments: left flank tenderness to palpation - Neurological Exam Neurological exam: Alert, Oriented x3 - Psychiatric Exam Psychiatric exam: Normal Affect, Normal Mood - Skin Skin Exam: Dry, Intact, Normal Color, Warm Results - Vital Signs Recent Vital Signs: Last Vital Signs Temp 97.8 F 02/10/19 23:28 Pulse 91 H 02/11/19 08:48 Resp 18 02/11/19 08:48 BP 125/77 02/11/19 08:48 Pulse Ox 96 02/11/19 08:48 - Labs Result Diagrams: 02/11/19 01:07 02/11/19 01:07 Labs: Laboratory Results - last 24 hr 02/11/19 02/11/19 02/11/19 01:07 01:07 02:20 WBC 7.0 RBC 5.01 Hgb 13.1 Hct 41.1 MCV 82.1 D MCH 26.1 L MCHC 31.7 L RDW 14.4 Plt Count 209 MPV 9.7 Neut % (Auto) 43.6 L Lymph % (Auto) 46.2 H [place] % (Auto) 7.8 Eos % (Auto) 2.0 Baso % (Auto) 0.4 Neut # (Auto) 3.0 Lymph # (Auto) 3.2 [place] # (Auto) 0.5 Eos # (Auto) 0.1 Baso # (Auto) 0.0 Sodium 139 Potassium 4.1 Chloride 102 Carbon Dioxide 27 Anion Gap 14 BUN 22 H Creatinine 1.0 Est GFR ( Amer) > 60 Est GFR (Non-Af Amer) > 60 Random Glucose 117 H Calcium 9.3 Total Bilirubin 0.8 AST 41 ALT 33 Alkaline Phosphatase 39 Total Protein 7.7 Albumin 4.7 Globulin 3.0 Albumin/Globulin Ratio 1.5 Urine Color Yellow Urine Clarity Hazy Urine pH 5.0 Ur Specific [place] 1.024 Urine Protein 1+ H Urine Glucose (UA) Normal Urine Ketones Negative Urine Blood 3+ H Urine Nitrate Negative Urine Bilirubin Negative Urine Urobilinogen Normal Ur Leukocyte Esterase Neg Urine WBC (Auto) 3 Urine RBC (Auto) 214 H Ur Squamous Epith Cells < 1 Assessment & Plan (1) Ureteral obstruction, left Assessment and Plan: CT A/P: moderate left renal hydroureteronephrosis with obstructing 7mm calculus in proximal/mid ureter with additional scattered calculi in kidney. Scattered punctate nonobstructive calculi throughout right kidney. Mildly prominent loops of small bowel in left/mid abdomen ~2.6cm diameter; focal ileus vs enteritis, unlikely SBO UA: 3+ blood, 214 RBC, 3 WBC, 1+ protein f/u urine cx Start rocephin 1g iv qd, empirically for pyelonephritis Keep NPO pending Urology evaluation IVF, NS @125 Start flomax 0.4 qd Pain control, Toradol 30mg IV q6 prn and morphine 2mg IV q4 prn Urology consult, Dr. Saravia Status: Acute - Assessment and Plan (Free Text) Assessment: Ppx VTE: SCDs GI: not currently indicated Discussed with -Radha Zuniga, PGY-1 <Ranjeet Castillo - Last Filed: 02/11/19 15:08> Results - Vital Signs Recent Vital Signs: Last Vital Signs Temp 98.8 F 02/11/19 13:00 Pulse 76 02/11/19 13:00 Resp 20 02/11/19 13:00 BP 132/82 02/11/19 13:00 Pulse Ox 96 02/11/19 13:00 - Labs Result Diagrams: 02/11/19 01:07 02/11/19 01:07 Labs: Laboratory Results - last 24 hr 02/11/19 02/11/19 02/11/19 01:07 01:07 02:20 WBC 7.0 RBC 5.01 Hgb 13.1 Hct 41.1 MCV 82.1 D MCH 26.1 L MCHC 31.7 L RDW 14.4 Plt Count 209 MPV 9.7 Neut % (Auto) 43.6 L Lymph % (Auto) 46.2 H Jun[place] % (Auto) 7.8 Eos % (Auto) 2.0 Baso % (Auto) 0.4 Neut # (Auto) 3.0 Lymph # (Auto) 3.2 [place] # (Auto) 0.5 Eos # (Auto) 0.1 Baso # (Auto) 0.0 Sodium 139 Potassium 4.1 Chloride 102 Carbon Dioxide 27 Anion Gap 14 BUN 22 H Creatinine 1.0 Est GFR ( Amer) > 60 Est GFR (Non-Af Amer) > 60 Random Glucose 117 H Calcium 9.3 Total Bilirubin 0.8 AST 41 ALT 33 Alkaline Phosphatase 39 Total Protein 7.7 Albumin 4.7 Globulin 3.0 Albumin/Globulin Ratio 1.5 Urine Color Yellow Urine Clarity Hazy Urine pH 5.0 Ur Specific [place] 1.024 Urine Protein 1+ H Urine Glucose (UA) Normal Urine Ketones Negative Urine Blood 3+ H Urine Nitrate Negative Urine Bilirubin Negative Urine Urobilinogen Normal Ur Leukocyte Esterase Neg Urine WBC (Auto) 3 Urine RBC (Auto) 214 H Ur Squamous Epith Cells < 1 Attending/Attestation - Attestation I have personally seen and examined this patient.: Yes I have fully participated in the care of the patient.: Yes I have reviewed all pertinent clinical information: Yes Notes (Text): Patient seen and examined with the residents, agree with above. Symptoms of left flank pain with L CVA tenderness in the setting of obstructive uropathy. Urology consulted - will likely need cystoscopy and ureteral stent given the size of stone Abx with Rocephin, pain medication - Toradol. Continue with ivf hydration. Flomax.
[2019-02-11] MEDS: Sodium Chloride 0.9% 1,000 ML IV SCH ×2 (09:49→17:30)
[2019-02-11] MEDS: cefTRIAXone IV 1 gm in Dextros 50 ML IVPB SCH (09:51)
--- NOTE | 2019-02-12 01:51 | CON ---
DATE: 02/11/2019 COMPREHENSIVE UROLOGIC CONSULTATION TIME OF CONSULTATION: Roughly 03:05 p.m. BRIEF HISTORY: The patient is a 48-year-old male from [facility], status post cholecystectomy on 11/08/2018, who now presents with history of acute onset of left renal colic, requiring him to come to the [facility] Emergency Room. Abdominopelvic CT stone survey showed a 7-mm partially obstructing proximal left ureteral stone with moderate left hydronephrosis and two smaller stones measuring around 2 to 3 mm, one in the left upper pole and one in the left lower pole of kidney. The patient has no prior history of kidney stones. No family history of kidney stones. PAST MEDICAL HISTORY: He has no other medical history except the gallbladder disease, status post cholecystectomy. SOCIAL HISTORY: No history of any tobacco use. He is a rare social drinker. ALLERGIES: NO KNOWN ALLERGIES TO ANY MEDICATIONS. PAST SURGICAL HISTORY: Cholecystectomy on 11/08/2018. PHYSICAL EXAMINATION: GENERAL: Today, the patient is a well-developed, well-nourished male. He is alert, he is oriented. HEENT: Grossly within normal limits. NECK: Supple, thyroid not palpable. ABDOMEN: Soft, nondistended, and nontender. No right CVA tenderness, 2+ left CVA tenderness. GENITALIA: The patient is non-circumcised with normal glans and meatus without any rashes or lesions visualized. Testes are down bilaterally, nontender without any masses. RECTAL: Normal rectal tone without fluctuance or masses. Prostate is average size, smooth, symmetrical, nontender without nodules or indurations with a palpable median sulcus. EXTREMITIES: He has full range of motion of both upper and lower extremities. No leg edema or calf tenderness present. LABORATORY DATA: His laboratory evaluation on 02/11/2019 shows CBC with a WBC count of 7, hemoglobin 13.1, hematocrit 41.1, and platelet count of 209,000. His chem profile shows a sodium of 139, potassium 4.1, chloride 102, CO2 of 27. BUN and creatinine 22 and 1 respectively with GFR greater than 60. Random glucose was 117. Calcium 9.3. Otherwise, a normal comprehensive metabolic profile. Urinalysis was positive for protein 1+, positive blood 3+, 3 wbc's, and 214 rbc's per high-power field. DIAGNOSTIC IMPRESSION: Obstructing proximal left 7-mm ureteral stone with left renal colic. PLAN: Schedule the patient for cystoscopy and insertion of left ureteral stent if the patient's pain persists. Otherwise, if the patient's pain resolves, can go home on Flomax 0.4 mg daily, Ceftin 500 mg b.i.d. for 10 days, and ibuprofen 600 mg p.o. every 6-8 hours with food or milk. Homar Saravia MD MTDHorace
[2019-02-12] MEDS: Sodium Chloride 0.9% 1,000 ML IV SCH ×3 (05:55→17:15)
[2019-02-12 06:39] LABS: BASO % 0.3 % (0.0-2.0); EOS # 0.1 K/uL (0.0-0.7); EOS % 1.1 % (0.0-4.0); HEMOGLOBIN 11.8 g/dL (12.0-18.0); LYMPH # 1.4 K/uL (1.0-4.3); LYMPH % 24.7 % (20.0-40.0); MEAN CORPUSCULAR HGB CONC 32.2 g/dL (33.0-37.0); MEAN PLATELET VOLUME 9.2 fL (7.2-11.7); MONO # 0.5 K/uL (0.0-0.8); MONO % 8.8 % (0.0-10.0); NEUT # 3.6 K/uL (1.8-7.0); NEUT % 65.1 % (50.0-75.0); RBC 4.53 Mil/uL (4.40-5.90); RED CELL DISTRIBUTION WIDTH 14.5 % (11.5-14.5); WHITE BLOOD COUNT 5.6 K/uL (4.8-10.8)
[2019-02-12 07:30] LABS: ALB/GLOB RATIO 1.4 (1.0-2.1); ALBUMIN 3.3 g/dL (3.5-5.0); ALT/SGPT 104 U/L (21-72); AST/SGOT 77 U/L (17-59); BLOOD UREA NITROGEN 11 mg/dL (9-20); CALCIUM 8.1 mg/dl (8.6-10.4); GFR NON-AFRICAN AMERICAN > 60
--- NOTE | 2019-02-12 07:32 | CP.PCM.PN ---
Subjective - Date & Time of Evaluation Date of Evaluation: 02/12/19 Time of Evaluation: 10:00 - Subjective Subjective: PGY-[address] Kina Fields service Patient is seen and examined at bedside this morning. Patient states he continues to experience pain in left lower back, radiating to his left groin area. Patient states pain medication alleviate pain temporarily, but pain always returns. Patient is asking for cystoscopy procedure as he says hes been having kidney stones for a long time now. Patient admits to subjective fever, denies chills, chest pain, sob, n/v/d, patient has not had a bowel movements since yesterday. Patient denies urinary symptoms such as burning or pain at urination, patient is ambulating. Objective - Vital Signs/Intake and Output Vital Signs (last 24 hours): Temp Pulse Resp BP Pulse Ox 99.5 F 64 20 116/59 L 96 02/12/19 00:00 02/12/19 00:00 02/12/19 00:00 02/12/19 00:00 02/12/19 00:00 - Medications Medications: Current Medications Ceftriaxone Sodium (Rocephin Iv 1 Gm Duplex) 50 mls @ 100 mls/hr IVPB DAILY YOANA; Protocol Last Admin: 02/11/19 09:51 Dose: 100 mls/hr Sodium Chloride (Sodium Chloride 0.9%) 1,000 mls @ 125 mls/hr IV .Q8H YOANA Last Admin: 02/12/19 05:55 Dose: 125 mls/hr Ketorolac Tromethamine (Toradol) 30 mg IVP Q6 PRN PRN Reason: Pain, moderate (4-7) Morphine Sulfate (Morphine) 2 mg IVP Q4H PRN PRN Reason: Pain, severe (8-10) Last Admin: 02/11/19 22:02 Dose: 2 mg Ondansetron HCl (Zofran Inj) 4 mg IVP Q6 PRN PRN Reason: Nausea/Vomiting Pneumococcal Polyvalent Vaccine (Pneumovax 23 Vaccine) 0.5 ml IM .ONCE ONE Stop: 02/13/19 10:01 Tamsulosin HCl (Flomax) 0.4 mg PO DAILY YOANA Last Admin: 02/11/19 10:26 Dose: 0.4 mg - Labs Labs: 02/12/19 06:26 02/12/19 06:26 - Constitutional Appears: Non-toxic, No Acute Distress - Head Exam Head Exam: ATRAUMATIC, NORMAL INSPECTION, NORMOCEPHALIC - Eye Exam Eye Exam: EOMI, Normal appearance - ENT Exam ENT Exam: Mucous Membranes Moist, Normal Exam - Neck Exam Neck Exam: Full ROM - Respiratory Exam Respiratory Exam: Clear to Ausculation Bilateral, NORMAL BREATHING PATTERN. absent: Rales, Rhonchi, Wheezes - Cardiovascular Exam Cardiovascular Exam: REGULAR RHYTHM, +S1, +S2 - GI/Abdominal Exam GI & Abdominal Exam: Soft, Tenderness (left lower quadrant ), Normal Bowel Sound s - Extremities Exam Extremities Exam: Full ROM, Normal Inspection - Back Exam Back Exam: CVA tenderness (L). absent: CVA tenderness (R), paraspinal tenderness, tenderness, vertebral tenderness - Neurological Exam Neurological Exam: Alert, Awake, Oriented x3 - Psychiatric Exam Psychiatric exam: Normal Affect, Normal Mood - Skin Skin Exam: Intact, Normal Color, Warm Assessment and Plan - Assessment and Plan (Free Text) Assessment: 48 year old male with pmhx of renal calculi, presenting to ED for left lower abdominal, flank and back pain, CT abd pelvis remarkable for hydroureteronephrosis with obstructing 7mm calculus in proximal/mid ureter, urology on case, planning for cystoscopy, possible stent placement. Plan: Left ureteral obstruction CT A/P: moderate left renal hydroureteronephrosis with obstructing 7mm calculus in proximal/mid ureter with additional scattered calculi in kidney. Scattered punctate nonobstructive calculi throughout right kidney. Mildly prominent loops of small bowel in left/mid abdomen ~2.6cm diameter; focal ileus vs enteritis, unlikely SBO UA: 3+ blood, 214 RBC, 3 WBC, 1+ protein Urine cx - pending Patient to go for cystoscopy, possible stent insertion today, scheduled at 4pm. medical clearance work up - Chest xray - no active pulmonary disease - EKG - NSR, normal axis - Coags - f/u continue IVF, NS @125 Continue flomax 0.4 qd continue rocephin Toradol 30mg IV q6 prn and morphine 2mg IV q4 prn for pain Urology consult, Dr. Saravia - will follow up with patient Constipation Start colace PO TID tonight after procedure PPX DVT: SCDs GI: not indicated Dispo: Patient is intermediate risk for procedure. Patient is medically stable for surgical procedure. Surgery and anesthesia to discuss Risk and benefits prior to OR. Plan discussed with Dr Donnie Cam, PGY-1
[2019-02-12] MEDS: cefTRIAXone IV 1 gm in Dextros 50 ML IVPB SCH (09:34)
--- NOTE | 2019-02-12 15:00 | RAD ---
Date of service: 02/12/2019 HISTORY: pre admission testing COMPARISON: 12/20/2018 FINDINGS: LUNGS: No active pulmonary disease. PLEURA: No significant pleural effusion identified, no pneumothorax apparent. CARDIOVASCULAR: No aortic atherosclerotic calcification present. Normal cardiac size. No pulmonary vascular congestion. OSSEOUS STRUCTURES: No significant abnormalities. VISUALIZED UPPER ABDOMEN: Normal. OTHER FINDINGS: None. IMPRESSION: No active disease. No interval pathology noted.
[2019-02-12 15:13] LABS: INR 1.1; PROTHROMBIN TIME 12.4 SECONDS (9.7-12.2)
[2019-02-12] MEDS ORDERED: Iohexol 240 (50 ml) ONE (15:52)
[2019-02-12] MEDS ORDERED: Lidocaine 2% Jelly (Uro-Jet) ONE (15:52)
[2019-02-12] MEDS ORDERED: Midazolam 2 MG/2 ML VIAL ONE (16:03)
[2019-02-12] MEDS ORDERED: Propofol 10 mg/ml Inj (20 ML) ONE ×2 (16:03→16:26)
[2019-02-12] MEDS ORDERED: HYDROmorphone 0.5 mg/0.5 ml ISec IVP PRN (17:04)
--- NOTE | 2019-02-12 18:16 | RAD ---
Date of service: 02/12/2019 PROCEDURE: Intraoperative Fluoroscopy. HISTORY: LT URETER STONE FINDINGS: Fluoroscopic assistance was provided. Fluoroscopy time = 24.7 sec. Radiation dose = 0.80610 mGy-cm. Please refer to the operative report from [facility].
--- NOTE | 2019-02-12 18:21 | RAD ---
Date of service: 02/12/2019 HISTORY: LT URETER STONE COMPARISON: Comparison made with CT scan abdomen pelvis dated 02/11/2019. FINDINGS: BOWEL: Normal. No obstruction. No free air. BONES: Normal. OTHER FINDINGS: Previously noted obstructing calculus that was located at approximately the L4 level on the prior study may have undergone further distal migration and may overlie the left aspect of the sacrum just above the 1st left-sided sacral exit foramen. Tiny calcifications also seen in the left upper quadrant of the abdomen may represent additional small calculi or present in the left kidney is well. IMPRESSION: Previously noted distal left ureteral calculus that was located at approximately the L4 level appears to have undergone further distal migration now lying over the upper sacrum. Additional small calculi left upper quadrant the abdomen probably represents renal calculi seen to better advantage on prior CT scan
[2019-02-13 00:59] VITALS: RESP 20
[2019-02-13] MEDS: Sodium Chloride 0.9% 1,000 ML IV SCH ×3 (01:37→10:01)
--- NOTE | 2019-02-13 02:30 | OP ---
PROCEDURE DATE: 02/12/2019 PREOPERATIVE DIAGNOSES: Left renal colic, left mid to proximal ureteral stone now sitting between L5 and S1 as determined from the left retrograde pyelogram. PROCEDURE: Cystoscopy, left retrograde pyelogram and insertion of Bard 6-Hungarian multi-length ureteral stent. SURGEON: Homar Saravia MD. ANESTHESIA: Local anesthesia plus laryngeal mask anesthesia. ANESTHESIOLOGIST: Aniceto Elam MD. DESCRIPTION OF PROCEDURE: The patient was placed on the cystoscopy table in dorsal lithotomy position, prepped and draped in usual sterile fashion with Betadine solution. KUB was obtained under fluoroscopy which did not really visualize the stone. So, it was decided to do a left retrograde pyelogram because the patient said prior to the procedure that his pain was markedly decreased. Using a Storz 22-Hungarian cystoscope, the cystoscope was inserted into the penile meatus and advanced into the bladder under direct vision using a 30 degree lens. Sterile water was used as irrigating solution throughout the entire procedure. Using an open-ended 6-Hungarian ureteral catheter and contrast solution, the catheter was then inserted into the left ureteral orifice and 10 mL of contrast was injected, and it appeared that there was a stone located around the bottom of L5 that appeared similar to the stone on the CT, at least 6 to 7 mm in diameter. Multiple left retrogrades were obtained. Also the left collecting system was dilated indicating moderate left hydronephrosis. Next, through the open-ended ureteral catheter, a Microvasive 0.035 inch, 150 cm sensor wire was inserted into this catheter, passed up to the area of the left renal pelvis, and with at least single coil seen in left renal pelvis, the sensor wire was left indwelling with removal of the open-ended ureteral catheter. Next, a Bard 6-Hungarian multi-length Versa-fit ureteral stent was placed over the sensor wire, passed up the left ureteral orifice to the area of the left renal pelvis under direct vision and fluoroscopic control. With at least two coils seen in the left renal pelvis and the end of the stent seen in the bladder, the sensor wire was removed and at least one coil was then seen in the bladder. At the end of the procedure, the patient tolerated the procedure well. There was about 5 mL of blood loss and was brought to recovery area in satisfactory condition. Plan for this patient will be to discharge the patient home and see the patient in office f/u in 1 week to discuss the next proceedure such as left ureteroscopic laser lithotripsy. The patient can be discharged home on Flomax 0.4 mg daily, Ceftin 500 mg b.i.d. for 10 days, and ibuprofen 600 mg p.o. every 6 hours with food or milk for pain control. The patient also can take extra-strength Tylenol for pain. The patient will be seen in office in followup in about one week. Homar Saravia MD MTDD
[2019-02-13 07:41] LABS: BASO % 0.6 % (0.0-2.0); EOS # 0.2 K/uL (0.0-0.7); EOS % 3.8 % (0.0-4.0); HEMOGLOBIN 11.4 g/dL (12.0-18.0); LYMPH # 1.3 K/uL (1.0-4.3); LYMPH % 30.3 % (20.0-40.0); MEAN CELL VOLUME 80.6 fL (80.0-94.0); MEAN CORPUSCULAR HEMOGLOBIN 25.7 pg (27.0-31.0); MEAN CORPUSCULAR HGB CONC 31.9 g/dL (33.0-37.0); MEAN PLATELET VOLUME 8.9 fL (7.2-11.7); MONO # 0.4 K/uL (0.0-0.8); MONO % 8.9 % (0.0-10.0); NEUT # 2.4 K/uL (1.8-7.0); NEUT % 56.4 % (50.0-75.0); RBC 4.44 Mil/uL (4.40-5.90); RED CELL DISTRIBUTION WIDTH 14.2 % (11.5-14.5); WHITE BLOOD COUNT 4.3 K/uL (4.8-10.8)
[2019-02-13 07:55] VITALS: BP 115/65; PULSE 71; TEMP 98.2; O2SAT 96
[2019-02-13 08:12] LABS: BLOOD UREA NITROGEN 9 mg/dL (9-20); GFR NON-AFRICAN AMERICAN > 60
[2019-02-13 08:13] LABS: ALB/GLOB RATIO 1.3 (1.0-2.1); ALBUMIN 3.2 g/dL (3.5-5.0); ALT/SGPT 65 U/L (21-72); AST/SGOT 37 U/L (17-59); CALCIUM 8.2 mg/dl (8.6-10.4)
[2019-02-13] MEDS ORDERED: Pneumococcal 23-Valent Vaccine IM ONE ×2 (10:00→13:11)
[2019-02-13] MEDS: cefTRIAXone IV 1 gm in Dextros 50 ML IVPB SCH (10:03)
[2019-02-13] MEDS ORDERED: Influenza Vaccine 60 mcg/0.5 mL SYR (4YR UP) IM ONE (13:10)
--- NOTE | 2019-02-13 16:34 | CP.PCM.DIS ---
Provider - Provider Date of Admission: 02/11/19 07:17 Attending physician: Ranjeet Castillo Consults: 02/11/19 07:21 Physician Consult Routine Comment: Consulting Provider: Homar Saravia Consulting Physician: Homar Saravia Reason for Consult: kidney stone Time Spent in preparation of Discharge (in minutes): 180 Diagnosis - Discharge Diagnosis (1) Ureteral obstruction, left Status: Acute (2) Ureteral stone Status: Acute Hospital Course - Lab Results Lab Results: Micro Results 02/11/19 02:20 Urine Random Urine Culture - Final No Growth (<1,000 CFU/ML) Most Recent Lab Values WBC 4.3 K/uL (4.8-10.8) L 02/13/19 07:34 RBC 4.44 Mil/uL (4.40-5.90) 02/13/19 07:34 Hgb 11.4 g/dL (12.0-18.0) L 02/13/19 07:34 Hct 35.8 % (35.0-51.0) 02/13/19 07:34 MCV 80.6 fL (80.0-94.0) 02/13/19 07:34 MCH 25.7 pg (27.0-31.0) L 02/13/19 07:34 MCHC 31.9 g/dL (33.0-37.0) L 02/13/19 07:34 RDW 14.2 % (11.5-14.5) 02/13/19 07:34 Plt Count 158 K/uL (130-400) 02/13/19 07:34 MPV 8.9 fL (7.2-11.7) 02/13/19 07:34 Neut % (Auto) 56.4 % (50.0-75.0) 02/13/19 07:34 Lymph % (Auto) 30.3 % (20.0-40.0) 02/13/19 07:34 [place] % (Auto) 8.9 % (0.0-10.0) 02/13/19 07:34 Eos % (Auto) 3.8 % (0.0-4.0) 02/13/19 07:34 Baso % (Auto) 0.6 % (0.0-2.0) 02/13/19 07:34 Neut # (Auto) 2.4 K/uL (1.8-7.0) 02/13/19 07:34 Lymph # (Auto) 1.3 K/uL (1.0-4.3) 02/13/19 07:34 [place] # (Auto) 0.4 K/uL (0.0-0.8) 02/13/19 07:34 Eos # (Auto) 0.2 K/uL (0.0-0.7) 02/13/19 07:34 Baso # (Auto) 0.0 K/uL (0.0-0.2) 02/13/19 07:34 PT 12.4 SECONDS (9.7-12.2) H 02/12/19 15:01 INR 1.1 02/12/19 15:01 APTT 32 SECONDS (21-34) 02/12/19 15:01 Sodium 136 mmol/L (132-148) 02/13/19 07:34 Potassium 4.0 mmol/L (3.6-5.2) 02/13/19 07:34 Chloride 105 mmol/L (98-107) 02/13/19 07:34 Carbon Dioxide 26 mmol/L (22-30) 02/13/19 07:34 Anion Gap 9 (10-20) L 02/13/19 07:34 BUN 9 mg/dL (9-20) 02/13/19 07:34 Creatinine 0.8 mg/dL (0.8-1.5) 02/13/19 07:34 Est GFR ( Amer) > 60 02/13/19 07:34 Est GFR (Non-Af Amer) > 60 02/13/19 07:34 Random Glucose 102 mg/dL (75-110) 02/13/19 07:34 Calcium 8.2 mg/dl (8.6-10.4) L 02/13/19 07:34 Total Bilirubin 0.7 mg/dL (0.2-1.3) 02/13/19 07:34 AST 37 U/L (17-59) 02/13/19 07:34 ALT 65 U/L (21-72) 02/13/19 07:34 Alkaline Phosphatase 64 U/L (38-126) 02/13/19 07:34 Total Protein 5.8 g/dL (6.3-8.3) L 02/13/19 07:34 Albumin 3.2 g/dL (3.5-5.0) L 02/13/19 07:34 Globulin 2.5 gm/dL (2.2-3.9) 02/13/19 07:34 Albumin/Globulin Ratio 1.3 (1.0-2.1) 02/13/19 07:34 Urine Color Yellow (YELLOW) 02/11/19 02:20 Urine Clarity Hazy (Clear) 02/11/19 02:20 Urine pH 5.0 (5.0-8.0) 02/11/19 02:20 Ur Specific [place] 1.024 (1.003-1.030) 02/11/19 02:20 Urine Protein 1+ mg/dL (NEGATIVE) H 02/11/19 02:20 Urine Glucose (UA) Normal mg/dL (Normal) 02/11/19 02:20 Urine Ketones Negative mg/dL (NEGATIVE) 02/11/19 02:20 Urine Blood 3+ (NEGATIVE) H 02/11/19 02:20 Urine Nitrate Negative (NEGATIVE) 02/11/19 02:20 Urine Bilirubin Negative (NEGATIVE) 02/11/19 02:20 Urine Urobilinogen Normal mg/dL (0.2-1.0) 02/11/19 02:20 Ur Leukocyte Esterase Neg Mima/uL (Negative) 02/11/19 02:20 Urine WBC (Auto) 3 /hpf (0-5) 02/11/19 02:20 Urine RBC (Auto) 214 /hpf (0-3) H 02/11/19 02:20 Ur Squamous Epith Cells < 1 /hpf (0-5) 02/11/19 02:20 - Hospital Course Hospital Course: On admission Patient is a 48 year old male with pmhx of renal calculi presenting to the ED with complaints of acute onset left lower abdominal, flank and back pain. Patient reports pain presented abruptly at 7pm last night, severe in intensity 10/10, beginning in the left lower back and radiating around the left flank to left lower abdomen. Patient reports pain was accompanied by 1 episode of non- bloody, non-bilious emesis, and subsequent sweats and chills. Patient reports a history of similar episodes in the past, less severe in intensity, with most recent episode prompting ED eval and treatment in December,. Patient denies further complaint On Hospitalization Patient admitted for evaluation and management of left ureteral obstruction. CT A/P shows moderate left renal hydroureteronephrosis with obstructing 7mm calculus in proximal/mid ureter with additional scattered calculi in kidney. Scattered punctate nonobstructive calculi throughout right kidney. Mildly prominent loops of small bowel in left/mid abdomen ~2.6cm diameter; focal ileus vs enteritis, unlikely SBO. UA showing 3+ blood, 214 RBC, 3 WBC, 1+ protein. Urology consult- Dr Saravia, performed cystoscopy, left retrograde and insertion ureteral stent. IV abx, flomax and pain medications given during hospitalization. On discharge Patient is medically stable for discharge. Patient recommended to establish care with the [facility] in [place] ([phone]). Patient's prescriptions on discharge: 1) Motrin 600mg POQ6H PRN pain (take with milk or food) 2) Cefetin 500mg PO BID for ten days 3) Flomax 0.4mg PO daily. Patient recommeneded for heart healthy diet to reduce kidney stones Patient recommended to follow-up with urology, Dr. Nelson to 7-10 for lithropsy. This is a short summary of Patient hospitalization course. For more info, please refer to EMR - Date & Time of H&P Date of H&P: 02/11/19 Time of H&P: 09:04 Discharge Exam - Head Exam Head Exam: ATRAUMATIC, NORMAL INSPECTION, NORMOCEPHALIC - Eye Exam Eye Exam: EOMI, Normal appearance - ENT Exam ENT Exam: Normal Exam - Respiratory Exam Respiratory Exam: Clear to PA & Lateral, NORMAL BREATHING PATTERN, UNREMARKABLE. absent: Rhonchi, Wheezes, Respiratory Distress - Cardiovascular Exam Cardiovascular Exam: REGULAR RHYTHM, +S1, +S2 - GI/Abdominal Exam GI & Abdominal Exam: Normal Bowel Sounds, Soft, Unremarkable - Extremities Exam Extremities exam: full ROM, normal inspection - Back Exam Back exam: FULL ROM - Neurological Exam Neurological exam: Alert, Oriented x3 - Psychiatric Exam Psychiatric exam: Normal Affect, Normal Mood - Skin Skin Exam: Dry, Intact, Normal Color, Warm Discharge Plan - Discharge Medications Prescriptions: Cefuroxime Axetil [Cefuroxime] 500 mg PO BID 10 Days #20 tablet Ibuprofen [Motrin Tab] 600 mg PO Q6 PRN 14 Days #56 tab PRN Reason: Pain, Severe (8-10) Lactobacillus Acidophilus [Bacid Acidophilus] 1 cap PO BID 30 Days #60 cap Tamsulosin [Flomax] 0.4 mg PO DAILY 30 Days #30 cap - Follow Up Plan Condition: STABLE Disposition: HOME/ ROUTINE Instructions: Kidney Stones (DC), Acute Abdomen (Belly Pain), Adult (DC), Flank Pain (DC), Urinary Obstruction (DC), Cefuroxime, Lactobacillus, Tamsulosin Additional Instructions: Patient is medically stable for discharge. Patient recommended to establish care with the [facility] in [place] ([phone]). Patient's prescriptions on discharge: 1) Motrin 600mg POQ6H PRN pain (take with milk or food) 2) Cefetin 500mg PO BID for ten days 3) Flomax 0.4mg PO daily. Patient recommeneded for heart healthy diet to reduce kidney stones Patient recommended to follow-up with urology, Dr. Nelson to 7-10 for lithropsy. El paciente est mdicamente estable para el jax. Paciente recomendado para establecer atencin con la [facility] en [place] ([phone]). Prescripciones del paciente al jax hospitalaria: 1) Dolor de Motrin 600 mg POQ6H PRN (anthony con leche o comida) 2) Cefetin 500mg PO BID lamar lavell godinez 3) Flomax 0.4mg PO diario. Paciente recomendado por francesco dieta saludable para el corazn para reducir los clculos renales Paciente recomendado para seguimiento con urologa, Dr. Nelson al 10 para la litropsia. Referrals: [facility] [Outside] Homar Saravia MD [Staff Provider] -
[2019-02-14] MEDS ORDERED: Influenza Vaccine 60 mcg/0.5 mL SYR (4YR UP) IM ONE (10:00)
== END 2019-02-13 13:35 | disposition home or self-care (01) ==
LOC: C.ER 23:22 → C.9E 02-11 07:17 → C.3T 02-11 12:34
PROVIDERS: ADMIT Hospitalist; ATTEND Hospitalist
DX: N13.2 Hydronephrosis with renal and ureteral calculous obstruction (principal); N18.9 Chronic kidney disease, unspecified; Z87.442 Personal history of urinary calculi
CPT/HCPCS: 36415; 52005; 52332; 71045; 74018; 74176; 80053; 81001; 85025; 85610; 85730; 87086; 96361; 96365; 96366; 96375; 96376; 99285; C1725; C1758; C1769; G0378; J0696; J1885; J2001; J2270; J2405; J7030; Q9966

== ENCOUNTER 2019-03-04 17:51 | Emergency (ER) | payer SELFPAY ==
[2019-03-04 17:51] VITALS: BMI 25.7
[2019-03-04 17:57] VITALS: BP 136/87; PULSE 68; TEMP 98.1
[2019-03-04 20:13] LABS: SQUAMOUS EPITHIAL 1 /hpf (0-5); URINE BACTERIA FEW (<OCC); URINE BILIRUBIN NEGATIVE (NEGATIVE); URINE BLOOD 3+ (NEGATIVE); URINE CLARITY Hazy (Clear); URINE GLUCOSE (UA) NORMAL (Normal); URINE LEUKOCYTE ESTERASE 2+ Leu/uL (Negative); URINE PROTEIN 2+ mg/dL (NEGATIVE); URINE UROBILINOGEN NORMAL mg/dL (0.2-1.0)
[2019-03-04 20:18] LABS: URINE COLOR LIGHT RED (YELLOW)
--- NOTE | 2019-03-04 20:36 | C.PDOC ---
History Of Present Illness 48 year old male presents to the ED for evaluation of left lower quadrant abdominal discomfort s/p ureteral stent placement on 01/16/19. Patient was instructed to follow-up with Dr. Saravia after the procedure, but states he did not understand that he underwent stent placement and was not sure of the follow-up instructions. Patient also reports right-sided abdominal cramping and claims he had a bowel movement today. Patient denies fever, chills. Time Seen by Provider: 03/04/19 18:38 Chief Complaint (Nursing): Abdominal Pain History Per: Patient History/Exam Limitations: no limitations Onset/Duration Of Symptoms: Days Current Symptoms Are (Timing): Still Present Quality Of Discomfort: "Pain" Associated Symptoms: denies: Fever, Chills Additional History Per: Patient Past Medical History Reviewed: Historical Data, Nursing Documentation, Vital Signs Vital Signs: Last Vital Signs Temp 98.1 F 03/04/19 17:53 Pulse 68 03/04/19 17:53 Resp 18 03/04/19 17:53 BP 136/87 03/04/19 17:53 Pulse Ox 97 03/04/19 17:53 - Medical History PMH: Kidney Stones, Chronic Kidney Disease Surgical History: Cholecystectomy (11/08/2018) - [email or web address] Procedures DRAINAGE OF GALLBLADDER, PERCUTANEOUS ENDOSCOPIC APPROACH (11/08/18) RESECTION OF GALLBLADDER, PERCUTANEOUS ENDOSCOPIC APPROACH (11/08/18) ROBOTIC ASSISTED PROCEDURE OF TRUNK, PERC ENDO APPROACH (11/08/18) Family History: States: Unknown Family Hx - Social History Hx Alcohol Use: No Hx Substance Use: No Review Of Systems Constitutional: Negative for: Fever, Chills Gastrointestinal: Positive for: Abdominal Pain (left lower quadrant ) Physical Exam - Physical Exam Appears: Non-toxic, No Acute Distress Skin: Normal Color, Warm, Dry Head: Atraumatic, Normacephalic Eye(s): bilateral: Normal Inspection Oral Mucosa: Moist Neck: Supple Chest: Symmetrical, No Deformity, No Tenderness Cardiovascular: Rhythm Regular, No Murmur Respiratory: Normal Breath Sounds, No Rales, No Rhonchi, No Wheezing Gastrointestinal/Abdominal: Soft, Tenderness (mild, to left lower quadrant), No Guarding, No Rebound, No Other (McBurney's point tenderness, Camargo's sign ) Extremity: Normal ROM, Capillary Refill (less than 2 seconds ) Neurological/Psych: Oriented x3, Normal Speech, Normal Cognition ED Course And Treatment - Laboratory Results Lab Results: Urine Color Light red (YELLOW) 03/04/19 19:58 Urine Clarity Hazy (Clear) 03/04/19 19:58 Urine pH 6.0 (5.0-8.0) 03/04/19 19:58 Ur Specific [place] 1.018 (1.003-1.030) 03/04/19 19:58 Urine Protein 2+ mg/dL (NEGATIVE) H 03/04/19 19:58 Urine Glucose (UA) Normal mg/dL (Normal) 03/04/19 19:58 Urine Ketones Negative mg/dL (NEGATIVE) 03/04/19 19:58 Urine Blood 3+ (NEGATIVE) H 03/04/19 19:58 Urine Nitrate Negative (NEGATIVE) 03/04/19 19:58 Urine Bilirubin Negative (NEGATIVE) 03/04/19 19:58 Urine Urobilinogen Normal mg/dL (0.2-1.0) 03/04/19 19:58 Ur Leukocyte Esterase 2+ Mima/uL (Negative) H 03/04/19 19:58 Urine WBC (Auto) 20 /hpf (0-5) H 03/04/19 19:58 Urine RBC (Auto) 3826 /hpf (0-3) H 03/04/19 19:58 Ur Squamous Epith Cells 1 /hpf (0-5) 03/04/19 19:58 Urine Bacteria Few (<OCC) H 03/04/19 19:58 Lab Interpretation: Abnormal (ua 3800 rbc's) O2 Sat by Pulse Oximetry: 97 (on RA ) Pulse Ox Interpretation: Normal - Other Rad abd x2 X-Ray: Interpreted by Me (+ FOS, R colon. good L uteral stent placement) Progress Note: Abdomen Flat Plate XR and urinalysis ordered and reviewed. Magnesium Citrate PO given. - Physician Consult Information Outcome Of Conversation: 2030: d/w Dr Saravia- urology- instructs pt to f/u with office for opt f/u as prior instructions Medical Decision Making Medical Decision Making: L ureteral stent in good place hematuria from stent/stone opt f/u defer abx as pt w 2 weeks of PO abx just completed (prob reactive) large stool R abd c/w constipation Disposition Doctor Will See Patient In The: Office Counseled Patient/Family Regarding: Studies Performed, Diagnosis - Disposition Referrals: [facility] [Outside] [facility] [Outside] [facility] [Outside] Homar Saravia MD [Staff Provider] - Disposition: HOME/ ROUTINE Disposition Time: 22:00 Condition: GOOD Additional Instructions: sigue ibuprofeno 400-600 mg cada 6 horas isaiah necessario Llama para seguir con Dr. Saravia- Urologo- en ying oficina Mucho estrenemiento Leti un purgante ahora cambios de dieta/ejercisio Instructions: Constipation in Adults, Ureteral Stent (DC) Forms: [facility] (Burkinan) Print Language: BURKINAN - Clinical Impression Clinical Impression: S/P ureteral stent placement, Abdominal colic - Scribe Statement The provider has reviewed the documentation as recorded by the Scribe (Evi Aparicio) Provider Attestation: All medical record entries made by the Scribe were at my direction and personally dictated by me. I have reviewed the chart and agree that the record accurately reflects my personal performance of the history, physical exam, medical decision making, and the department course for this patient. I have also personally directed, reviewed, and agree with the discharge instructions and disposition.
[2019-03-04] MEDS ORDERED: Magnesium Citrate Oral SOL (300 ml) PO ONE (20:40)
[2019-03-04 23:17] VITALS: RESP 20
[2019-03-04 23:23] VITALS: O2SAT 97
--- NOTE | 2019-03-05 10:20 | RAD ---
Date of service: 03/04/2019 HISTORY: L ureteral stent placement COMPARISON: None available. TECHNIQUE: 1 view obtained. FINDINGS: BOWEL: Moderate stool retention mostly right colon.. No obstruction. No free air. BONES: Normal. OTHER FINDINGS: An interval left ureteral stent is in place approximately coil projects over the expected left intrarenal pelvis. The distal in the bladder. There are faint opacity seen over the left proximal ureteral core probably relating to left renal calculi. Bordering the most cephalad left sacral foramen is another distal left ureteral calculus suspect. This was more dense in more clearly defined on the KUB from 02/12/2019. Note significant change in its position since then is appreciated. IMPRESSION: Interval left ureteral stent as above. Left renal an distal left ureteral calculi the distal appear similar position over the most cephalad left sacral foramen as it did on the 02/12/2019 study.
== END 2019-03-04 21:55 | disposition home or self-care (01) ==
LOC: C.ER 17:51
DX: R10.84 Generalized abdominal pain (principal)

== ENCOUNTER 2019-03-12 07:30 | Day surgery (SDC) | payer SELFPAY ==
[2019-03-10 12:57] VITALS: BMI 25.0
[2019-03-12] MEDS ORDERED: Midazolam 2 MG/2 ML VIAL ONE (08:28)
[2019-03-12] MEDS ORDERED: Propofol 10 mg/ml Inj (20 ML) ONE (08:28)
[2019-03-12] MEDS ORDERED: cefTRIAXone 1 gm 1 GM/100 ML BAG IVPB ONE (08:39)
[2019-03-12] MEDS ORDERED: Iohexol 240 (50 ml) ONE (08:40)
[2019-03-12] MEDS ORDERED: Lidocaine 2% Jelly (Uro-Jet) ONE (09:15)
[2019-03-12] MEDS: HYDROmorphone 0.5 mg/0.5 ml ISec IVP PRN ×4 (10:35→11:50)
[2019-03-12] MEDS ORDERED: Lactated Ringer's 500 ML IV ONE (12:00)
[2019-03-12 13:14] VITALS: PULSE 72; RESP 18
--- NOTE | 2019-03-12 13:48 | RAD ---
Date of service: 03/12/2019 HISTORY: LT. URETER CALCULI COMPARISON: 03/04/2019 TECHNIQUE: 1 view obtained. FINDINGS: BOWEL: Currently there is less stool over the right colon. The left double-J ureteral stent position is as before. The proximal coil projects over the left intrarenal pelvis region the distal over the bladder. Compared to the prior study few were small left lower renal pole calculi are suggested. Previously 2 small ones with seen. Only 1 is definitively identified now. On the current study there is a partially visualized approximately 2 to 3 mm calculus over the mid left ureteral stent just above the L4 left lateral transverse process. This is difficult to identify with certainty on the prior study. The 5 to 6 mm calculus projecting over the left sacrum left lateral to the left ureteral stent is as before. No change in position of it is seen. BONES: Normal. OTHER FINDINGS: Few inferior left hemipelvic phleboliths present and similar. IMPRESSION: Interval appreciation of a calculus mid left ureter as referenced above. Its original point of migration is difficult to ascertain. This appears larger than those left lower renal pole calculi seen previously. Few were tiny left lower renal pole calculi now noted. The largest calculus estimated at 5 -6 mm projects over the left sacrum as it did before no change in its position seen.
[2019-03-12 13:58] VITALS: BP 120/76; TEMP 97.5; O2SAT 97
--- NOTE | 2019-03-12 15:51 | RAD ---
PROCEDURE: HISTORY: As above COMPARISON: None TECHNIQUE: Total fluoroscopic time utilized during the procedure: 10.0 seconds ; 0.27864 mGy cm 2 FINDINGS: Submitted images from the current procedure: 7 Please refer to the physician's notes performing the procedure. IMPRESSION: Less than 1 hour fluoroscopic time utilized during performance of the procedure
--- NOTE | 2019-03-12 22:13 | OP ---
PROCEDURE DATE: 03/12/2019 TIME OF DICTATION: 10:23 a.m. PREOPERATIVE DIAGNOSIS: Left ureterolithiasis with left ureteral stent. POSTOPERATIVE DIAGNOSIS: Left ureterolithiasis with left ureteral stent. PROCEDURE: Cystoscopy, removal and reinsertion of left ureteral stent and left ureteroscopic laser lithotripsy with removal of stone fragments. SURGEON: Homar Saravia MD ANESTHESIA: Laryngeal mask anesthesia. ANESTHESIOLOGIST: Erich Kidd MD DESCRIPTION OF PROCEDURE: The patient was placed on the cystoscopy table in the dorsal lithotomy position, prepped and draped in the usual sterile fashion with Betadine solution under laryngeal mask anesthesia. A KUB was obtained, which showed these stones overlying the left ureteral stent roughly at about S1. Next, approximately 10 mL of 2% Xylocaine jelly were injected intraurethrally, this was followed by insertion of #22-Samoan Storz cystoscope into the bladder under vision using sterile water as an irrigation solution during this part of the procedure. The bladder was examined in all four quadrants. The only foreign body seen in the bladder was the multi-length Bard VersaFit #6 Samoan stent extending from the left ureteral orifice. There were no stones or any other foreign bodies seen in the bladder. No evidence of any bladder malignancy. The total prostatic length was about 3 cm and the bladder neck to verumontanum measurement was about 2 cm. Next, using a Microvasive 0.035 inch, 150 cm sensor wire, the sensor wire was passed alongside the left ureteral stent up the area of left renal pelvis with at least single coil seen in the left renal pelvis. The cystoscope was removed leaving safety sensor wire intact. Next, the cystoscope was reinserted into the bladder and using a rigid grasper the stent was grasped and removed while holding the sensor wire in place. The stent was removed in its eternity. Next, using normal saline as the irrigating solution during this part of the procedure, a 6.9-Samoan Storz rigid ureteroscope was then passed into the urethral meatus and then into the bladder under direct vision. Fluoroscopy was used throughout the entire procedure to guide positioning of the ureteroscope. The ureteroscope was then passed into the bladder and then alongside the safety wire into the left ureteral orifice and up to the area of the level of the stone. The stone was visualized and then using the holmium laser which was set at 5 Hz and 1.5 joules, the stone was broken at least into two pieces, possibly three pieces and at least one decent size fragment was completely removed using a [employer] grasp basket. After this was done, ureteroscopy was performed along the entire ureter up to the area of the left renal pelvis and no stones were visualized during this part of the procedure and also no additional stones were visualized in the bladder. Next, using the safety wire a Bard VersaFit #6 Samoan multi-length stent was passed over the sensor wire into the area of the left ureteral orifice after the sensor wire was back-fed through the cystoscope. The stent was then passed up to the area of the left renal pelvis with at least two coil seen in the left renal pelvis and the end of the stent seen in the bladder with a string attached. The sensor wire was removed and at least the stent was seen coiling in the bladder with at least one to two coils seen in the bladder. Next, the cystoscope was then removed and the string was taped to the abdomen. The patient tolerated the procedure very well with about 20 mL of blood loss and was brought to the recovery area in satisfactory condition. Plan for this patient, we will see the patient in one week to remove the indwelling left ureteral stent in the office. Homar Saravia MD ARTHUR
== END 2019-03-12 14:10 | disposition home or self-care (01) ==
LOC: C.SDS 07:30
PROVIDERS: ATTEND Urology
DX: N20.1 Calculus of ureter (principal)
CPT/HCPCS: 52356; 74018; 82365; 88300; C1725; C1769; J0696; J1170; J7120; Q9966